=== PATIENT | female | born 1930 | race Caucasian/White ===

== ENCOUNTER 2016-08-29 01:27 | Emergency (ER) | payer MEDICARE ==
[2016-08-29] MEDS ORDERED: ACETAMINOPHEN TAB 325 MG TAB PO STA (02:12)
[2016-08-29 02:41] LABS: Basophils % (A) 0 %; CH 31.7; CHCM 34.3; Eosinophils % (A) 0 %; HCT 37.1 % (34.0-46.0); HDW 2.09; HGB 12.5 gm/dL (11.4-16.0); Luc # (Auto) 0.15; Luc % (Auto) 1; Lymphocytes # (A) 0.5 k/uL (1.0-4.8); Lymphocytes % (A) 5 %; MCH 31.3 pg (25.0-35.0); MCHC 33.7 g/dL (31.0-37.0); MCV 92.7 fL (80.0-100.0); Mean Platelet Volume 9.1; Monocytes # (A) 0.5 k/uL (0-1.0); Monocytes % (A) 5 %; Neutrophils # (A) 9.8 k/uL (1.3-7.7); Neutrophils % (A) 88 %; RBC 4.01 m/uL (3.80-5.40); RDW 13.3 % (11.5-15.5); WBC 11.1 k/uL (3.8-10.6); WBC (Perox) 11.01
[2016-08-29 02:50] LABS: ALT 34 U/L (9-52); AST 29 U/L (14-36); Alkaline Phosphatase 109 U/L (38-126); Anion Gap 11 mmol/L; Blood Urea Nitrogen 32 mg/dL (7-17); Calcium 9.8 mg/dL (8.4-10.2); Carbon Dioxide 28 mmol/L (22-30); Chloride 98 mmol/L (98-107); Glucose 111 mg/dL (74-99); Non-African American GFR(MDRD) 53 (>60 ml/min/1.73 sqM); Potassium 3.7 mmol/L (3.5-5.1); Sodium 137 mmol/L (137-145); Total Bilirubin 0.4 mg/dL (0.2-1.3); Total Protein 6.6 g/dL (6.3-8.2)
--- NOTE | 2016-08-29 03:16 | CT ---
EXAM: CT Head Without Intravenous Contrast CLINICAL HISTORY: Reason: fall TECHNIQUE: Axial computed tomography images of the head/brain without intravenous contrast. CTDI is 57.40 mGy and DLP is 943.80 mGy-cm. This CT exam was performed using one or more of the following dose reduction techniques: automated exposure control, adjustment of the mA and/or kV according to patient size, and/or use of iterative reconstruction technique. COMPARISON: CT head dated 01/16/2016 FINDINGS: Brain: No evidence of acute infarct, hemorrhage, mass or edema. Chronic small vessel skin disease and senescent changes. Ventricles: Unremarkable. No ventriculomegaly. Bones/joints: Unremarkable. No acute fracture. Soft tissues: Small right frontal scalp soft tissue hematoma. Sinuses: Mild mucosal thickening of the paranasal sinuses. Mastoid air cells: Unremarkable as visualized. No mastoid effusion. IMPRESSION: No acute intracranial abnormality. Small right frontal scalp soft tissue hematoma. EXAM: CT Cervical Spine Without Intravenous Contrast CLINICAL HISTORY: Reason: fall TECHNIQUE: Axial computed tomography images of the cervical spine without intravenous contrast. CTDI is 13.50 mGy and DLP is 249.40 mGy-cm. This CT exam was performed using one or more of the following dose reduction techniques: automated exposure control, adjustment of the mA and/or kV according to patient size, and/or use of iterative reconstruction technique. COMPARISON: No relevant prior studies available. FINDINGS: Vertebrae: No acute fracture or traumatic malalignment. Discs/spinal canal/neural foramina: Degenerative changes of the cervical spine. No spinal canal stenosis. Soft tissues: Unremarkable. Thyroid: 18 mm hypodensity within the left thyroid gland. Recommend nonemergent sonogram if clinically indicated. Lung apices: Biapical pleural-parenchymal scarring. IMPRESSION: 1. No acute fracture or traumatic malalignment. 2. 18 mm hypodensity within the left thyroid gland. Recommend nonemergent sonogram if clinically indicated.
--- NOTE | 2016-08-29 03:24 | XR ---
EXAM: XR Chest, 1 View CLINICAL HISTORY: Fever TECHNIQUE: Frontal view of the chest. COMPARISON: No relevant prior studies available. FINDINGS: Lungs: Unremarkable. No consolidation. Pleural space: Unremarkable. No pneumothorax. Heart: Unremarkable. No cardiomegaly. Mediastinum: Unremarkable. Bones/joints: Degenerative changes. IMPRESSION: Normal chest x-ray.
--- NOTE | 2016-08-29 03:25 | XR ---
EXAM: XR Right Elbow Complete, 3 or More Views CLINICAL HISTORY: fall TECHNIQUE: Frontal, lateral and oblique views of the right elbow. COMPARISON: No relevant prior studies available. FINDINGS: Bones/joints: Unremarkable. No acute fracture. No dislocation. Soft tissues: Soft tissue swelling about the proximal forearm. IMPRESSION: Soft tissue swelling about the proximal forearm. No fracture.
--- NOTE | 2016-08-29 03:26 | XR ---
EXAM: XR Right Ankle Complete, 3 or More Views CLINICAL HISTORY: Reason: fall TECHNIQUE: Frontal, lateral and oblique views of the right ankle. COMPARISON: No relevant prior studies available. FINDINGS: Bones/joints: Unremarkable. No acute fracture. No dislocation. Mild osteopenia. Soft tissues: Unremarkable. IMPRESSION: Normal right ankle x-rays.
[2016-08-29 03:43] LABS: Appearance,Urine Clear (Clear); Bacteria,Urine Rare /hpf; Bilirubin,Urine Negative (Negative); Glucose,Urine (UA) Negative (Negative); Ketones,Urine Negative (Negative); Leukocyte Esterase,Urine Negative (Negative); Nitrite,Urine Negative (Negative); PH, Urine 6.5 (5.0-8.0); Particle Count 712; Protein,Urine Negative (Negative); RBC,Urine <1 /hpf (0-5); Squamous Epithelial Cell,Urine 1 /hpf (0-4); UA Billing (MACRO vs. MICRO) MICRO; Urobilinogen,Urine <2.0 mg/dL (<2.0); WBC,Urine <1 /hpf (0-5)
--- NOTE | 2016-08-29 04:11 | ED ---
Fall HPI - General Chief Complaint: Fall Stated Complaint: Fall Time Seen by Provider: 08/29/16 01:39 Source: patient, family Mode of arrival: wheelchair Limitations: altered mental status (Dementia) - History of Present Illness Initial Comments: This patient is 86-year-old woman brought to be evaluated after she had a fall at home. The patient has moderate underlying dementia and is not able to contribute much history. She is denying pains. The patient's daughter provides most of the details about the fall. Family was concerned about the contusion to the right side of the head and the elbow as well as patient's right ankle. MD Complaint: fall Onset/Timin -: hour(s) Fall From: standing When Fall Occurred: [address] Fall Occurred: home Loss of Consciousness: none Prolonged Down Time?: no Location: head Location - Extremities: Right: Elbow, Ankle Severity: mild Context: tripped/slipped - Related Data Home Medications Medication Instructions Recorded Confirmed Losartan/Hydrochlorothiazide 1 tab PO DAILY 08/22/14 01/16/16 [Losartan-Hctz 100-25 mg Tab] Aspirin EC [Ecotrin Low Dose] 81 mg PO MOTH 01/16/16 01/16/16 Calcium Carbonate/Vitamin D3 1 tab PO DAILY 01/16/16 01/16/16 [Calcium 500-Vit D3 600 Tablet] Previous Rx's Medication Instructions Recorded Acetaminophen-Codeine 300-30mg 1 tab PO Q6H PRN #40 tablet 01/17/16 [Tylenol #3] amLODIPine [Norvasc] 5 mg PO HS #0 01/17/16 Allergies Allergy/AdvReac Type Severity Reaction Status Date / Time No Known Allergies Allergy Verified 01/16/16 16:48 Review of Systems ROS Statement: Those systems with pertinent positive or pertinent negative responses have been documented in the HPI. ROS Other: All systems not noted in ROS Statement are negative. Limitations: ROS unobtainable due to patients medical condition Past Medical History Past Medical History: Hypertension Additional Past Medical History / Comment(s): arthritis History of Any Multi-Drug Resistant Organisms: None Reported Additional Past Surgical History / Comment(s): right hip surgery Past Anesthesia/Blood Transfusion Reactions: No Reported Reaction Past Psychological History: No Psychological Hx Reported Smoking Status: Never smoker Past Alcohol Use History: None Reported Past Drug Use History: None Reported - Past Family History Mother History Unknown: Yes Family Medical History: Myocardial Infarction ([place]) Additional Family Medical History / Comment(s): passed from [place] in mid 50's General Exam Limitations: no limitations General appearance: alert, in no apparent distress Head exam: Present: normocephalic, other (Patient has contusion to the right parietal and right brow areas). Absent: atraumatic Eye exam: Present: normal appearance, PERRL, EOMI. Absent: scleral icterus, conjunctival injection ENT exam: Present: normal oropharynx, TM's normal bilaterally, normal external ear exam Neck exam: Present: normal inspection, full ROM. Absent: tenderness Respiratory exam: Present: normal lung sounds bilaterally. Absent: respiratory distress, wheezes, rales, rhonchi, chest wall tenderness Cardiovascular Exam: Present: regular rate, normal rhythm, normal heart sounds. Absent: systolic murmur, diastolic murmur, rubs, gallop GI/Abdominal exam: Present: soft. Absent: distended, tenderness, guarding, rebound, rigid Extremities exam: Present: full ROM, normal capillary refill, other (There is a hematoma to the right elbow, the lateral aspect. No bony tenderness or deformity). Absent: tenderness, pedal edema, calf tenderness Back exam: Present: normal inspection. Absent: CVA tenderness (R), CVA tenderness (L) Neurological exam: Present: alert, CN II-XII intact. Absent: oriented X3 ( Patient is alert and oriented to person and place, does not know the date.), motor sensory deficit Skin exam: Present: warm, dry, intact, normal color. Absent: rash Course Vital Signs 08/29/16 08/29/16 08/29/16 01:30 01:53 03:48 Temperature 98.5 F 99.5 F 99.3 F Pulse Rate 98 102 H Pulse Rate [ 93 [employer] ] Respiratory 20 16 14 Rate Blood Pressure 188/77 182/74 Blood Pressure 190/86 [Left Arm] O2 Sat by Pulse 93 L 99 97 Oximetry 08/29/16 04:46 Temperature 99.0 F Pulse Rate 90 Pulse Rate [ [employer] ] Respiratory 16 Rate Blood Pressure 159/75 Blood Pressure [Left Arm] O2 Sat by Pulse 98 Oximetry Medical Decision Making - Lab Data Result diagrams: 08/29/16 02:30 08/29/16 02:30 Lab Results 0608/29/16 08/29/16 Range/Units 02:30 02:30 02:30 WBC 11.1 H (3.8-10.6) k/uL RBC 4.01 (3.80-5.40) m/uL Hgb 12.5 (11.4-16.0) gm/dL Hct 37.1 (34.0-46.0) % MCV 92.7 (80.0-100.0) fL MCH 31.3 (25.0-35.0) pg MCHC 33.7 (31.0-37.0) g/dL RDW 13.3 (11.5-15.5) % Plt Count 279 (150-450) k/uL Neutrophils % 88 % Lymphocytes % 5 % Monocytes % 5 % Eosinophils % 0 % Basophils % 0 % Neutrophils # 9.8 H (1.3-7.7) k/uL Lymphocytes # 0.5 L (1.0-4.8) k/uL Monocytes # 0.5 (0-1.0) k/uL Eosinophils # 0.0 (0-0.7) k/uL Basophils # 0.0 (0-0.2) k/uL APTT (22.0-30.0) sec Sodium 137 (137-145) mmol/L Potassium 3.7 (3.5-5.1) mmol/L Chloride 98 (98-107) mmol/L Carbon Dioxide 28 (22-30) mmol/L Anion Gap 11 mmol/L BUN 32 H (7-17) mg/dL Creatinine 1.00 (0.52-1.04) mg/dL Est GFR (MDRD) Af Amer >60 (>60 ml/min/1.73 sqM) Est GFR (MDRD) Non-Af 53 (>60 ml/min/1.73 sqM) Glucose 111 H (74-99) mg/dL Plasma Lactic Acid Rahul 1.1 (0.7-2.0) mmol/L Calcium 9.8 (8.4-10.2) mg/dL Total Bilirubin 0.4 (0.2-1.3) mg/dL AST 29 (14-36) U/L ALT 34 (9-52) U/L Alkaline Phosphatase 109 (38-126) U/L Troponin I (0.000-0.034) ng/mL Total Protein 6.6 (6.3-8.2) g/dL Albumin 4.1 (3.5-5.0) g/dL Urine Color Urine Appearance (Clear) Urine pH (5.0-8.0) Ur Specific [place] (1.001-1.035) Urine Protein (Negative) Urine Glucose (UA) (Negative) Urine Ketones (Negative) Urine Blood (Negative) Urine Nitrite (Negative) Urine Bilirubin (Negative) Urine Urobilinogen (<2.0) mg/dL Ur Leukocyte Esterase (Negative) Urine RBC (0-5) /hpf Urine WBC (0-5) /hpf Ur Squamous Epith Cells (0-4) /hpf Urine Bacteria (None) /hpf 08/29/16 08/29/16 08/29/16 Range/Units 02:30 02:30 03:15 WBC (3.8-10.6) k/uL RBC (3.80-5.40) m/uL Hgb (11.4-16.0) gm/dL Hct (34.0-46.0) % MCV (80.0-100.0) fL MCH (25.0-35.0) pg MCHC (31.0-37.0) g/dL RDW (11.5-15.5) % Plt Count (150-450) k/uL Neutrophils % % Lymphocytes % % Monocytes % % Eosinophils % % Basophils % % Neutrophils # (1.3-7.7) k/uL Lymphocytes # (1.0-4.8) k/uL Monocytes # (0-1.0) k/uL Eosinophils # (0-0.7) k/uL Basophils # (0-0.2) k/uL APTT 22.2 (22.0-30.0) sec Sodium (137-145) mmol/L Potassium (3.5-5.1) mmol/L Chloride (98-107) mmol/L Carbon Dioxide (22-30) mmol/L Anion Gap mmol/L BUN (7-17) mg/dL Creatinine (0.52-1.04) mg/dL Est GFR (MDRD) Af Amer (>60 ml/min/1.73 sqM) Est GFR (MDRD) Non-Af (>60 ml/min/1.73 sqM) Glucose (74-99) mg/dL Plasma Lactic Acid Rahul (0.7-2.0) mmol/L Calcium (8.4-10.2) mg/dL Total Bilirubin (0.2-1.3) mg/dL AST (14-36) U/L ALT (9-52) U/L Alkaline Phosphatase (38-126) U/L Troponin I <0.012 (0.000-0.034) ng/mL Total Protein (6.3-8.2) g/dL Albumin (3.5-5.0) g/dL Urine Color Light Yellow Urine Appearance Clear (Clear) Urine pH 6.5 (5.0-8.0) Ur Specific [place] 1.010 (1.001-1.035) Urine Protein Negative (Negative) Urine Glucose (UA) Negative (Negative) Urine Ketones Negative (Negative) Urine Blood Trace H (Negative) Urine Nitrite Negative (Negative) Urine Bilirubin Negative (Negative) Urine Urobilinogen <2.0 (<2.0) mg/dL Ur Leukocyte Esterase Negative (Negative) Urine RBC <1 (0-5) /hpf Urine WBC <1 (0-5) /hpf Ur Squamous Epith Cells 1 (0-4) /hpf Urine Bacteria Rare H (None) /hpf - EKG Data -: EKG Interpreted by Id EKG shows normal: sinus rhythm, axis (Normal), intervals (QRS duration is prolonged at 122 ms. AK and QT intervals normal), QRS complexes (Right bundle branch block), ST-T waves (Normal) Rate: normal (Rate 90 bpm) Disposition Clinical Impression: Fall, Head injury, Hematoma Disposition: HOME SELF-CARE Condition: Fair Instructions: Fall Prevention for Older Adults (ED), Head Injury (ED) Referrals: Levi Escalona MD [Primary Care Provider] - 1-2 days
[2016-08-29 04:47] VITALS: BP 159/75; PULSE 90; RESP 16; TEMP 99
== END 2016-08-29 04:47 | disposition home or self-care (01) ==
LOC: EC 01:27
DX: S00.11XA Contusion of right eyelid and periocular area, initial encounter (principal); S00.03XA Contusion of scalp, initial encounter; S50.01XA Contusion of right elbow, initial encounter; S99.911A Unspecified injury of right ankle, initial encounter; I10 Essential (primary) hypertension; M19.90 Unspecified osteoarthritis, unspecified site; Z79.82 Long term (current) use of aspirin; Z79.899 Other long term (current) drug therapy; W01.0XXA Fall on same level from slipping, tripping and stumbling without subsequent striking against object, initial encounter; Y92.009 Unspecified place in unspecified non-institutional (private) residence as the place of occurrence of the external cause
CPT/HCPCS: 99284; 36415; 93005; 80053; 83605; 84484; 85025; 85730; 81001; 87040; 87086; 71010; 73080; 73610; 72125; 70450; J0696

== ENCOUNTER 2016-09-01 12:48 | Emergency (ER) | payer MEDICARE ==
[2016-09-01 13:16] LABS: Glucose,Whole Blood 170 mg/dL (75-99)
--- NOTE | 2016-09-01 14:08 | ED ---
Weakness HPI - General Chief complaint: Weakness Stated complaint: fall/vomiting/weakness Source: patient, family Mode of arrival: wheelchair Limitations: no limitations - History of Present Illness Initial comments: Patient is a 86-year-old female who presents for evaluation for nausea and vomiting, right hip pain, possible confusion since fall this past Sunday. Past medical history as below. Patient fell at home 2 times last Sunday. She came to our facility for evaluation and had negative CT head and neck and was subsequently discharged home. On follow-up with her primary care physician. Was found that she had a right wrist fracture which is currently in a splint. Patient's family member brought her in for evaluation today because she had a couple episodes of emesis. She also appears to have pain to the right hip. Reevaluation by the primary care physician revealed swelling to the lower extremities bilaterally and a chest x-ray which revealed fluid. She started on Lasix and potassium. The family member also states that she seems to be a little bit more altered than usual. She seems to be more weak as well. She's been having an intermittent nonproductive cough in addition. Because of her constellation of symptoms and the recurrent falls, family member decided to bring her in for evaluation. No fevers at home. No obvious headaches, URI symptoms, chest pain, difficulty breathing, diarrhea, changes in urination. - Related Data Home Medications Medication Instructions Recorded Confirmed Losartan/Hydrochlorothiazide 1 tab PO DAILY 08/22/14 09/01/16 [Losartan-Hctz 100-25 mg Tab] Aspirin EC [Ecotrin Low Dose] 81 mg PO MOTH 01/16/16 09/01/16 Calcium Carbonate/Vitamin D3 1 tab PO DAILY 01/16/16 09/01/16 [Calcium 500-Vit D3 600 Tablet] hydrALAZINE HCL [Apresoline] 10 mg PO BID 09/01/16 09/01/16 Previous Rx's Medication Instructions Recorded amLODIPine [Norvasc] 5 mg PO HS #0 01/17/16 Allergies Allergy/AdvReac Type Severity Reaction Status Date / Time No Known Allergies Allergy Verified 09/01/16 13:48 Review of Systems ROS Statement: Those systems with pertinent positive or pertinent negative responses have been documented in the HPI. ROS Other: All systems not noted in ROS Statement are negative. Past Medical History Past Medical History: Hypertension Additional Past Medical History / Comment(s): arthritis osteoporosis History of Any Multi-Drug Resistant Organisms: None Reported Additional Past Surgical History / Comment(s): right hip surgery Past Anesthesia/Blood Transfusion Reactions: No Reported Reaction Past Psychological History: No Psychological Hx Reported Smoking Status: Never smoker Past Alcohol Use History: None Reported Past Drug Use History: None Reported - Past Family History Mother History Unknown: Yes Family Medical History: Myocardial Infarction ([place]) Additional Family Medical History / Comment(s): passed from [place] in mid 50's General Exam Limitations: no limitations General appearance: alert, in no apparent distress, other (No acute distress. Blood pressure noted to be significantly elevated.) Head exam: Present: normocephalic, normal inspection, other (Bruising around the right eye. No crepitus.) Eye exam: Present: normal appearance, PERRL, EOMI. Absent: scleral icterus, conjunctival injection, periorbital swelling ENT exam: Present: normal exam, mucous membranes moist, other (No hemotympanum bilaterally. Extraocular muscles intact.) Neck exam: Present: normal inspection, other (No midline tenderness). Absent: tenderness, meningismus, lymphadenopathy Respiratory exam: Present: normal lung sounds bilaterally, other (Clear bilaterally. No wheezes rales or rhonchi.). Absent: respiratory distress, wheezes, rales, rhonchi, stridor Cardiovascular Exam: Present: regular rate, normal rhythm, normal heart sounds. Absent: systolic murmur, diastolic murmur, rubs, gallop, clicks GI/Abdominal exam: Present: soft, normal bowel sounds, other (Abdomen is soft and nontender. No peritoneal signs.). Absent: distended, tenderness, guarding , rebound, rigid Extremities exam: Present: normal inspection, full ROM, normal capillary refill , other (Right wrist is in a brace. Pain with palpation of the right hip.). Absent: tenderness, pedal edema, joint swelling, calf tenderness Back exam: Present: normal inspection Neurological exam: Present: alert, CN II-XII intact, other (Alert. Answers questions appropriately. And O 2 which is her baseline. No focal deficits. Sensation intact in all 4 charities.) Psychiatric exam: Present: normal affect, normal mood Skin exam: Present: warm, dry, intact, normal color. Absent: rash Course Vital Signs 09/01/16 09/01/16 09/01/16 12:57 13:43 15:53 Temperature 97.2 F L Pulse Rate 77 72 100 Respiratory 18 16 18 Rate Blood Pressure 191/81 206/87 188/82 O2 Sat by Pulse 97 95 97 Oximetry 09/01/16 18:02 Temperature 97 F L Pulse Rate 100 Respiratory 18 Rate Blood Pressure 200/91 O2 Sat by Pulse 97 Oximetry Medical Decision Making - Medical Decision Making Patient is afebrile female percents for evaluation for nausea vomiting, weakness , questionable change in mentation. We'll repeat CT head in order CT face without contrast. Plain films of the chest and right hip. Basic labs including liver profile, lipase, troponin, BNP. Blood pressure noted to be 196 200 systolic. Known history of hypertension. Took medications this morning. Will reevaluate. 1530: Reviewed CT imaging. No acute process. Reviewed plain films of the chest and right hip. No fracture dislocation. Otherwise no acute process. Awaiting for blood work. 1640: Updated family. Awaiting IV team as pt was a difficult IV. 1750: Reviewed laboratory studies. Largely unremarkable. Had a lengthy discussion with the patient's family member at bedside. As of right now, there is no objective criteria for admission. Do not have a reason for her weakness at this time. Per chart review in further discussion with the patient's family member, the patient has early dementia and has been increasingly more forgetful and confused as of late. Patient's blood pressure noted to be quite elevated in the 190s to 200s systolic. There is no evidence of end organ damage at this time. I gave the patient's family member the option of treating her blood pressure here versus discharge home to take her evening hypertension medications. Family member elected to be discharged home and take her home medications. Encourage close follow-up with her primary care physician. We'll call on Sunday morning. Discussed signs and symptoms on when to return to the emergency department for further evaluation. Comfortable discharge home and will follow-up with primary care physician early next week. - Lab Data Result diagrams: 09/01/16 16:42 09/01/16 16:42 Lab Results 09/01/16 09/01/16 09/01/16 Range/Units 13:12 14:02 16:42 WBC (3.8-10.6) k/uL RBC (3.80-5.40) m/uL Hgb (11.4-16.0) gm/dL Hct (34.0-46.0) % MCV (80.0-100.0) fL MCH (25.0-35.0) pg MCHC (31.0-37.0) g/dL RDW (11.5-15.5) % Plt Count (150-450) k/uL Neutrophils % % Lymphocytes % % Monocytes % % Eosinophils % % Basophils % % Neutrophils # (1.3-7.7) k/uL Lymphocytes # (1.0-4.8) k/uL Monocytes # (0-1.0) k/uL Eosinophils # (0-0.7) k/uL Basophils # (0-0.2) k/uL Sodium 131 L (137-145) mmol/L Potassium 3.8 (3.5-5.1) mmol/L Chloride 90 L (98-107) mmol/L Carbon Dioxide 31 H (22-30) mmol/L Anion Gap 10 mmol/L BUN 18 H (7-17) mg/dL Creatinine 0.80 (0.52-1.04) mg/dL Est GFR (MDRD) Af Amer >60 (>60 ml/min/1.73 sqM) Est GFR (MDRD) Non-Af >60 (>60 ml/min/1.73 sqM) Glucose 116 H (74-99) mg/dL POC Glucose (mg/dL) 170 H (75-99) mg/dL POC Glu Patient Intake Coordinator ID Blanca Riojas Calcium 10.1 (8.4-10.2) mg/dL Magnesium 1.7 (1.6-2.3) mg/dL Total Bilirubin 0.5 (0.2-1.3) mg/dL AST 31 (14-36) U/L ALT 29 (9-52) U/L Alkaline Phosphatase 95 (38-126) U/L Troponin I (0.000-0.034) ng/mL NT-Pro-B Natriuret Pep pg/mL Total Protein 6.2 L (6.3-8.2) g/dL Albumin 3.6 (3.5-5.0) g/dL Lipase 94 (23-300) U/L Urine Color Light Yellow Urine Appearance Clear (Clear) Urine pH 7.0 (5.0-8.0) Ur Specific [place] 1.006 (1.001-1.035) Urine Protein Negative (Negative) Urine Glucose (UA) Negative (Negative) Urine Ketones Negative (Negative) Urine Blood Negative (Negative) Urine Nitrite Negative (Negative) Urine Bilirubin Negative (Negative) Urine Urobilinogen <2.0 (<2.0) mg/dL Ur Leukocyte Esterase Negative (Negative) 09/01/16 09/01/16 09/01/16 Range/Units 16:42 16:42 16:42 WBC 8.1 (3.8-10.6) k/uL RBC 4.07 (3.80-5.40) m/uL Hgb 13.2 (11.4-16.0) gm/dL Hct 36.2 (34.0-46.0) % MCV 88.8 (80.0-100.0) fL MCH 32.4 (25.0-35.0) pg MCHC 36.4 (31.0-37.0) g/dL RDW 12.7 (11.5-15.5) % Plt Count 300 (150-450) k/uL Neutrophils % 88 % Lymphocytes % 6 % Monocytes % 4 % Eosinophils % 1 % Basophils % 0 % Neutrophils # 7.1 (1.3-7.7) k/uL Lymphocytes # 0.5 L (1.0-4.8) k/uL Monocytes # 0.3 (0-1.0) k/uL Eosinophils # 0.1 (0-0.7) k/uL Basophils # 0.0 (0-0.2) k/uL Sodium (137-145) mmol/L Potassium (3.5-5.1) mmol/L Chloride (98-107) mmol/L Carbon Dioxide (22-30) mmol/L Anion Gap mmol/L BUN (7-17) mg/dL Creatinine (0.52-1.04) mg/dL Est GFR (MDRD) Af Amer (>60 ml/min/1.73 sqM) Est GFR (MDRD) Non-Af (>60 ml/min/1.73 sqM) Glucose (74-99) mg/dL POC Glucose (mg/dL) (75-99) mg/dL POC Glu Patient Intake Coordinator ID Calcium (8.4-10.2) mg/dL Magnesium (1.6-2.3) mg/dL Total Bilirubin (0.2-1.3) mg/dL AST (14-36) U/L ALT (9-52) U/L Alkaline Phosphatase (38-126) U/L Troponin I <0.012 (0.000-0.034) ng/mL NT-Pro-B Natriuret Pep 209 pg/mL Total Protein (6.3-8.2) g/dL Albumin (3.5-5.0) g/dL Lipase (23-300) U/L Urine Color Urine Appearance (Clear) Urine pH (5.0-8.0) Ur Specific [place] (1.001-1.035) Urine Protein (Negative) Urine Glucose (UA) (Negative) Urine Ketones (Negative) Urine Blood (Negative) Urine Nitrite (Negative) Urine Bilirubin (Negative) Urine Urobilinogen (<2.0) mg/dL Ur Leukocyte Esterase (Negative) Disposition Clinical Impression: Fall, Contusion, Hypertension, Weakness Disposition: HOME SELF-CARE Condition: Fair Instructions: Head Injury (ED), Weakness (ED) Referrals: Levi Escalona MD [Primary Care Provider] - 1-2 days
[2016-09-01 14:25] LABS: Appearance,Urine Clear (Clear); Bilirubin,Urine Negative (Negative); Glucose,Urine (UA) Negative (Negative); Ketones,Urine Negative (Negative); Leukocyte Esterase,Urine Negative (Negative); Nitrite,Urine Negative (Negative); Protein,Urine Negative (Negative); Specific Gravity,Urine 1.006 (1.001-1.035); UA Billing (MACRO vs. MICRO) CHEM; Urobilinogen,Urine <2.0 mg/dL (<2.0)
--- NOTE | 2016-09-01 14:57 | CT ---
EXAMINATION TYPE: CT brain wo con, CT facial bones wo con DATE OF EXAM: 09/01/2016 HISTORY: Fall, bruising to eye bruising (accession [id number]), Fall, Rt sided eye bruising (accession [id number]) headache. CT DLP: 1441 (brain and facial) (accession [id number]), 1441 (accession [id number]) mGycm. Automated Exp osure Control for Dose Reduction was Utilized. TECHNIQUE: CT scan of the head and facial bones are performed without contrast. COMPARISON: CT brain 3 days ago. FINDINGS: There is no acute intracranial hemorrhage or midline shift identified. There is diffuse v entricular and sulcal prominence consistent with diffuse age-related cerebral atrophy. There is low- attenuation in the periventricular white matter consistent with chronic small vessel ischemic change. The calvarium is intact. Visualized mandible is intact. Temporomandibular joints are maintained bilaterally. The zygomatic arc hes are intact bilaterally. Nasal bridge is intact. There is small hematoma over right zygoma near ax ial image 36. Orbital floors and dias are intact. The pterygoid plates are intact. There is air-fluid level in left maxillary sinus. Mild to moderate mucosal thickening inferiorly and anteriorly is seen. There is patchy opacity and small caliber left sphenoid sinus. There is near comp lete opacification of left-sided ethmoid sinuses. IMPRESSION: 1. No acute intracranial hemorrhage or midline shift. There is moderate diffuse age-related cerebral atrophy and severe chronic small vessel ischemic change redemonstrated without significant interval change. 2. Tiny right hematoma right zygoma level. No acute facial bone fracture or dislocation is seen. Left -sided paranasal sinus disease is noted.
--- NOTE | 2016-09-01 15:00 | XR ---
EXAMINATION TYPE: XR chest 2V DATE OF EXAM: 09/01/2016 COMPARISON: Chest x-ray August 29, 2016. HISTORY: Fall injury with cough. TECHNIQUE: Frontal and lateral views of the chest are obtained. FINDINGS: There are small bilateral pleural effusions. Underlying emphysematous change is not exclud ed. There is no suspicious new focal airspace opacity or pneumothorax seen bilaterally. There is stab le mild cardiomegaly with atherosclerotic and ectatic thoracic aorta. Osseous structures are deminera lized. Old fracture deformity left proximal humerus is suspected. There are multiple chronic compress ion type fractures in the thoracic spine noted. IMPRESSION: Chronic changes and cardiomegaly with small bilateral pleural effusions, no significant change from prior.
--- NOTE | 2016-09-01 15:02 | XR ---
EXAMINATION TYPE: XR Hip Complete RT DATE OF EXAM: 09/01/2016 CLINICAL HISTORY: Fall injury with right hip pain. TECHNIQUE: AP and frogleg views of the right hip are obtained. COMPARISON: Pelvic x-ray August 22, 2014 FINDINGS: Osseous structures are demineralized which is noted to lower radiographic sensitivity. The re is no acute fracture/dislocation evident in the right hip. Mild to moderate axial joint space loss right hip is redemonstrated. Vascular calcification right groin region is noted. IMPRESSION: There is no acute fracture or dislocation in the right hip.
[2016-09-01 15:53] VITALS: PULSE 100; RESP 18
[2016-09-01 17:04] LABS: Basophils % (A) 0 %; CH 31.3; CHCM 35.3; Eosinophils # (A) 0.1 k/uL (0-0.7); Eosinophils % (A) 1 %; HCT 36.2 % (34.0-46.0); HDW 2.35; HGB 13.2 gm/dL (11.4-16.0); Luc # (Auto) 0.13; Luc % (Auto) 2; Lymphocytes # (A) 0.5 k/uL (1.0-4.8); Lymphocytes % (A) 6 %; MCH 32.4 pg (25.0-35.0); MCHC 36.4 g/dL (31.0-37.0); MCV 88.8 fL (80.0-100.0); Monocytes # (A) 0.3 k/uL (0-1.0); Monocytes % (A) 4 %; Neutrophils # (A) 7.1 k/uL (1.3-7.7); Neutrophils % (A) 88 %; RBC 4.07 m/uL (3.80-5.40); RDW 12.7 % (11.5-15.5); WBC 8.1 k/uL (3.8-10.6); WBC (Perox) 7.89
[2016-09-01 17:25] LABS: ALT 29 U/L (9-52); AST 31 U/L (14-36); Alkaline Phosphatase 95 U/L (38-126); Anion Gap 10 mmol/L; Blood Urea Nitrogen 18 mg/dL (7-17); Calcium 10.1 mg/dL (8.4-10.2); Carbon Dioxide 31 mmol/L (22-30); Chloride 90 mmol/L (98-107); Glucose 116 mg/dL (74-99); Magnesium 1.7 mg/dL (1.6-2.3); Non-African American GFR(MDRD) >60 (>60 ml/min/1.73 sqM); Potassium 3.8 mmol/L (3.5-5.1); Sodium 131 mmol/L (137-145); Total Bilirubin 0.5 mg/dL (0.2-1.3); Total Protein 6.2 g/dL (6.3-8.2)
[2016-09-01 18:03] VITALS: BP 200/91; TEMP 97
== END 2016-09-01 18:14 | disposition home or self-care (01) ==
LOC: EC 12:48
DX: S70.01XA Contusion of right hip, initial encounter (principal); R11.2 Nausea with vomiting, unspecified; R41.0 Disorientation, unspecified; F03.90 Unspecified dementia, unspecified severity, without behavioral disturbance, psychotic disturbance, mood disturbance, and anxiety; I10 Essential (primary) hypertension; M19.90 Unspecified osteoarthritis, unspecified site; M81.0 Age-related osteoporosis without current pathological fracture; Z79.82 Long term (current) use of aspirin; Z79.899 Other long term (current) drug therapy; Z87.81 Personal history of (healed) traumatic fracture; W18.30XA Fall on same level, unspecified, initial encounter; Y92.009 Unspecified place in unspecified non-institutional (private) residence as the place of occurrence of the external cause
CPT/HCPCS: 36415; 70450; 70486; 71020; 73502; 80053; 81003; 83690; 83735; 83880; 84484; 85025; 99285

== ENCOUNTER 2016-09-10 15:43 | Inpatient (IN) | payer MEDICARE ==
[2016-09-10] MEDS ORDERED: ONDANSETRON 4 MG/2 ML VIAL IVP STA (16:21)
[2016-09-10] MEDS ORDERED: MORPHINE SULFATE 4 MG/ML SYRINGE IVP STA (16:34)
[2016-09-10 17:38] LABS: Appearance,Urine Clear (Clear); Bilirubin,Urine Negative (Negative); Glucose,Urine (UA) Negative (Negative); Ketones,Urine Negative (Negative); Leukocyte Esterase,Urine Negative (Negative); Nitrite,Urine Negative (Negative); PH, Urine 7.5 (5.0-8.0); Protein,Urine Negative (Negative); Specific Gravity,Urine 1.011 (1.001-1.035); UA Billing (MACRO vs. MICRO) CHEM; Urobilinogen,Urine <2.0 mg/dL (<2.0)
--- NOTE | 2016-09-10 18:10 | XR ---
EXAMINATION TYPE: XR KUB DATE OF EXAM: 09/10/2016 COMPARISON: NONE HISTORY: Pain TECHNIQUE: Single supine KUB image of the abdomen is obtained FINDINGS: Small bowel demonstrates no evidence for dilatation or air fluid levels. Gas and fecal material is seen in non-distended colon. No convincing evidence for pneumoperitoneum. No unusual calcifications. The lung bases are clear. The osseous structures are intact. IMPRESSION: 1. Overall nonobstructive bowel gas pattern.
--- NOTE | 2016-09-10 18:10 | XR ---
EXAMINATION TYPE: XR chest 2V DATE OF EXAM: 09/10/2016 COMPARISON: 09/01/2016 HISTORY: Shortness of breath TECHNIQUE: Frontal and lateral views of the chest are obtained. FINDINGS: Scattered senescent parenchymal changes noted. Hyperinflation compatible with COPD. No evidence for infiltrate. No evidence for atelectasis. Small bilateral pleural effusions persist. Heart size is stable. Mediastinal structures are stable and grossly unremarkable. No evidence for hilar prominence. Degenerative changes dorsal spine. IMPRESSION: 1. No evidence for acute pulmonary disease.
[2016-09-10 18:41] LABS: Basophils % (A) 0 %; CH 31.6; CHCM 35.5; Eosinophils % (A) 0 %; HCT 35.2 % (34.0-46.0); HDW 2.39; Luc # (Auto) 0.17; Luc % (Auto) 2; Lymphocytes # (A) 0.4 k/uL (1.0-4.8); Lymphocytes % (A) 4 %; MCH 30.5 pg (25.0-35.0); MCHC 34.1 g/dL (31.0-37.0); MCV 89.4 fL (80.0-100.0); Mean Platelet Volume 8.4; Monocytes # (A) 0.4 k/uL (0-1.0); Monocytes % (A) 4 %; Neutrophils # (A) 9.2 k/uL (1.3-7.7); Neutrophils % (A) 90 %; RBC 3.94 m/uL (3.80-5.40); RDW 13.1 % (11.5-15.5); WBC 10.2 k/uL (3.8-10.6); WBC (Perox) 10.81
[2016-09-10 18:45] LABS: VBG PH 7.6 (7.31-7.41)
[2016-09-10 18:50] LABS: ALT 28 U/L (9-52); AST 27 U/L (14-36); Alkaline Phosphatase 132 U/L (38-126); Anion Gap 12 mmol/L; Blood Urea Nitrogen 25 mg/dL (7-17); Calcium 8.9 mg/dL (8.4-10.2); Carbon Dioxide 23 mmol/L (22-30); Chloride 87 mmol/L (98-107); Glucose 112 mg/dL (74-99); Non-African American GFR(MDRD) >60 (>60 ml/min/1.73 sqM); Potassium 3.5 mmol/L (3.5-5.1); Sodium 122 mmol/L (137-145); Total Protein 6.5 g/dL (6.3-8.2)
[2016-09-10] MEDS ORDERED: SODIUM CHLORIDE 0.9% 1,000 ML IV STA (18:55)
--- NOTE | 2016-09-10 19:14 | ED ---
General Adult HPI - General Chief complaint: Nausea/Vomiting/Diarrhea Stated complaint: vomiting/diarrhea Time Seen by Provider: 09/10/16 16:03 Source: patient, family, RN notes reviewed Mode of arrival: wheelchair Limitations: no limitations - History of Present Illness Initial comments: 86-year-old female with past medical history of hypertension and early dementia presents with a three-day history of nausea vomiting and several episodes of loose stool. Patient is accompanied by her daughter who states she had approximately 3 episodes of vomiting each day and had 30 minutes of dry heaving today. Denies fever states she has had some chills. No chest pain or shortness of breath. No abdominal pain. Patient was prescribed a Z-Job and Medrol Dosepak for chest congestion approximately one week ago. - Related Data Home Medications Medication Instructions Recorded Confirmed Losartan/Hydrochlorothiazide 1 tab PO DAILY 08/22/14 09/10/16 [Losartan-Hctz 100-25 mg Tab] Aspirin EC [Ecotrin Low Dose] 81 mg PO MOTH 01/16/16 09/10/16 Calcium Carbonate/Vitamin D3 1 tab PO DAILY 01/16/16 09/10/16 [Calcium 500-Vit D3 600 Tablet] hydrALAZINE HCL [Apresoline] 10 mg PO BID 09/01/16 09/10/16 Azithromycin [Zithromax Z-pack] See Taper PO DAILY 09/10/16 09/10/16 Promethazine/Dextromethorphan 7.5 ml PO Q8H PRN 09/10/16 09/10/16 [Promethazine-Dm Syrup] amLODIPine [Norvasc] 5 mg PO DAILY 09/10/16 09/10/16 methylPREDNISolone [Medrol Dose See Taper PO DAILY 09/10/16 09/10/16 Pack] Allergies Allergy/AdvReac Type Severity Reaction Status Date / Time No Known Allergies Allergy Verified 09/10/16 16:05 Review of Systems ROS Statement: Those systems with pertinent positive or pertinent negative responses have been documented in the HPI. ROS Other: All systems not noted in ROS Statement are negative. Respiratory: Denies: cough, dyspnea Cardiovascular: Denies: chest pain, palpitations Past Medical History Past Medical History: Hypertension Additional Past Medical History / Comment(s): arthritis osteoporosis History of Any Multi-Drug Resistant Organisms: None Reported Additional Past Surgical History / Comment(s): right hip surgery Past Anesthesia/Blood Transfusion Reactions: No Reported Reaction Past Psychological History: No Psychological Hx Reported Smoking Status: Never smoker Past Alcohol Use History: None Reported Past Drug Use History: None Reported - Past Family History Mother History Unknown: Yes Family Medical History: Myocardial Infarction ([place]) Additional Family Medical History / Comment(s): passed from [place] in mid 50's General Exam Limitations: no limitations General appearance: alert, in no apparent distress Head exam: Present: atraumatic, normocephalic Eye exam: Present: normal appearance, PERRL ENT exam: Present: normal exam, mucous membranes dry Neck exam: Present: full ROM. Absent: meningismus Respiratory exam: Present: normal lung sounds bilaterally, respiratory distress Cardiovascular Exam: Present: regular rate, normal rhythm Course Vital Signs 09/10/16 09/10/16 09/10/16 15:48 18:09 18:39 Temperature 98.5 F Pulse Rate 80 72 68 Respiratory 20 16 16 Rate Blood Pressure 181/79 150/71 154/72 O2 Sat by Pulse 98 98 96 Oximetry 09/10/16 19:08 Temperature 97.1 F L Pulse Rate 76 Respiratory 16 Rate Blood Pressure 179/81 O2 Sat by Pulse 96 Oximetry EKG Findings - EKG Comments: EKG Findings:: EKG shows normal sinus rhythm with ventricular 75, P reveals 140 , QRS duration 124, QTC is 480, there is a right bundle branch block. Medical Decision Making - Medical Decision Making A 6-year-old female presenting with 3 days history of nausea vomiting and diarrhea. Patient's abdomen is nontender nondistended. She is afebrile with stable vital signs. Laboratory studies reveal hypo-chloremia and a potassium of 3.5. Patient presents venous blood gas 7.6 which is consistent with significant vomiting and diarrhea. Patient will be admitted to internal medicine for fluid hydration and symptomatic relief. Abdominal x-ray is negative for obstruction or free air. - Lab Data Result diagrams: 09/10/16 18:30 09/10/16 18:30 Lab Results 09/10/16 09/10/16 09/10/16 Range/Units 17:30 18:30 18:30 WBC 10.2 (3.8-10.6) k/uL RBC 3.94 (3.80-5.40) m/uL Hgb 12.0 (11.4-16.0) gm/dL Hct 35.2 (34.0-46.0) % MCV 89.4 (80.0-100.0) fL MCH 30.5 (25.0-35.0) pg MCHC 34.1 (31.0-37.0) g/dL RDW 13.1 (11.5-15.5) % Plt Count 358 (150-450) k/uL Neutrophils % 90 % Lymphocytes % 4 % Monocytes % 4 % Eosinophils % 0 % Basophils % 0 % Neutrophils # 9.2 H (1.3-7.7) k/uL Lymphocytes # 0.4 L (1.0-4.8) k/uL Monocytes # 0.4 (0-1.0) k/uL Eosinophils # 0.0 (0-0.7) k/uL Basophils # 0.0 (0-0.2) k/uL VBG pH 7.60 H* (7.31-7.41) VBG pCO2 26 L (37-51) mmHg VBG HCO3 25 (24-28) mmol/L Sodium (137-145) mmol/L Potassium (3.5-5.1) mmol/L Chloride (98-107) mmol/L Carbon Dioxide (22-30) mmol/L Anion Gap mmol/L BUN (7-17) mg/dL Creatinine (0.52-1.04) mg/dL Est GFR (MDRD) Af Amer (>60 ml/min/1.73 sqM) Est GFR (MDRD) Non-Af (>60 ml/min/1.73 sqM) Glucose (74-99) mg/dL Plasma Lactic Acid Rahul (0.7-2.0) mmol/L Calcium (8.4-10.2) mg/dL Total Bilirubin (0.2-1.3) mg/dL AST (14-36) U/L ALT (9-52) U/L Alkaline Phosphatase (38-126) U/L Troponin I (0.000-0.034) ng/mL Total Protein (6.3-8.2) g/dL Albumin (3.5-5.0) g/dL Lipase (23-300) U/L Urine Color Yellow Urine Appearance Clear (Clear) Urine pH 7.5 (5.0-8.0) Ur Specific Dow 1.011 (1.001-1.035) Urine Protein Negative (Negative) Urine Glucose (UA) Negative (Negative) Urine Ketones Negative (Negative) Urine Blood Negative (Negative) Urine Nitrite Negative (Negative) Urine Bilirubin Negative (Negative) Urine Urobilinogen <2.0 (<2.0) mg/dL Ur Leukocyte Esterase Negative (Negative) 09/10/16 09/10/16 09/10/16 Range/Units 18:30 18:30 18:30 WBC (3.8-10.6) k/uL RBC (3.80-5.40) m/uL Hgb (11.4-16.0) gm/dL Hct (34.0-46.0) % MCV (80.0-100.0) fL MCH (25.0-35.0) pg MCHC (31.0-37.0) g/dL RDW (11.5-15.5) % Plt Count (150-450) k/uL Neutrophils % % Lymphocytes % % Monocytes % % Eosinophils % % Basophils % % Neutrophils # (1.3-7.7) k/uL Lymphocytes # (1.0-4.8) k/uL Monocytes # (0-1.0) k/uL Eosinophils # (0-0.7) k/uL Basophils # (0-0.2) k/uL VBG pH (7.31-7.41) VBG pCO2 (37-51) mmHg VBG HCO3 (24-28) mmol/L Sodium 122 L (137-145) mmol/L Potassium 3.5 (3.5-5.1) mmol/L Chloride 87 L (98-107) mmol/L Carbon Dioxide 23 (22-30) mmol/L Anion Gap 12 mmol/L BUN 25 H (7-17) mg/dL Creatinine 0.63 (0.52-1.04) mg/dL Est GFR (MDRD) Af Amer >60 (>60 ml/min/1.73 sqM) Est GFR (MDRD) Non-Af >60 (>60 ml/min/1.73 sqM) Glucose 112 H (74-99) mg/dL Plasma Lactic Acid Rahul 0.7 (0.7-2.0) mmol/L Calcium 8.9 (8.4-10.2) mg/dL Total Bilirubin 1.0 (0.2-1.3) mg/dL AST 27 (14-36) U/L ALT 28 (9-52) U/L Alkaline Phosphatase 132 H (38-126) U/L Troponin I <0.012 (0.000-0.034) ng/mL Total Protein 6.5 (6.3-8.2) g/dL Albumin 3.6 (3.5-5.0) g/dL Lipase 146 (23-300) U/L Urine Color Urine Appearance (Clear) Urine pH (5.0-8.0) Ur Specific Dow (1.001-1.035) Urine Protein (Negative) Urine Glucose (UA) (Negative) Urine Ketones (Negative) Urine Blood (Negative) Urine Nitrite (Negative) Urine Bilirubin (Negative) Urine Urobilinogen (<2.0) mg/dL Ur Leukocyte Esterase (Negative) Disposition Clinical Impression: Nausea & vomiting, Hypochloremia Disposition: ADMITTED IP TO THIS [facility] Referrals: Levi Escalona MD [Primary Care Provider] - 1-2 days Time of Disposition: 18:50 Decision to Admit Reason: Admit from EC Decision Date: 09/10/16 Decision Time: 18:50
[2016-09-10] MEDS ORDERED: ONDANSETRON 4 MG/2 ML VIAL IVP PRN (19:25)
[2016-09-10] MEDS ORDERED: MORPHINE SULFATE 4 MG/ML SYRINGE IV PRN (19:25)
[2016-09-10] MEDS ORDERED: NALOXONE 0.4 MG/ML 1 ML VIAL IV PRN (19:25)
[2016-09-10] MEDS: hydrALAZINE HCL 10 MG TAB PO SCH (22:02)
[2016-09-11 07:46] LABS: Basophils % (A) 0 %; CH 31.6; CHCM 35.2; Eosinophils # (A) 0.1 k/uL (0-0.7); Eosinophils % (A) 1 %; HCT 36.2 % (34.0-46.0); HDW 2.37; HGB 12.2 gm/dL (11.4-16.0); Luc # (Auto) 0.22; Luc % (Auto) 2; Lymphocytes # (A) 1.1 k/uL (1.0-4.8); Lymphocytes % (A) 11 %; MCH 30.4 pg (25.0-35.0); MCHC 33.8 g/dL (31.0-37.0); MCV 90.1 fL (80.0-100.0); Mean Platelet Volume 8.9; Monocytes # (A) 0.6 k/uL (0-1.0); Monocytes % (A) 6 %; Neutrophils # (A) 7.6 k/uL (1.3-7.7); Neutrophils % (A) 79 %; RBC 4.02 m/uL (3.80-5.40); RDW 12.9 % (11.5-15.5); WBC 9.6 k/uL (3.8-10.6); WBC (Perox) 10.13
[2016-09-11 07:57] LABS: Anion Gap 12 mmol/L; Blood Urea Nitrogen 22 mg/dL (7-17); Calcium 9.1 mg/dL (8.4-10.2); Carbon Dioxide 24 mmol/L (22-30); Chloride 89 mmol/L (98-107); Glucose 94 mg/dL (74-99); Non-African American GFR(MDRD) >60 (>60 ml/min/1.73 sqM); Potassium 3.6 mmol/L (3.5-5.1); Sodium 125 mmol/L (137-145)
[2016-09-11] MEDS: hydrALAZINE HCL 10 MG TAB PO SCH ×2 (08:33→22:12)
[2016-09-11] MEDS: amLODIPine 5 MG TAB PO SCH (08:33)
[2016-09-11] MEDS ORDERED: PANTOPRAZOLE 40 MG/10 ML VIAL IV SCH (09:00)
[2016-09-11] MEDS ORDERED: LOSARTAN-HCTZ 50-12.5 MG 1 EACH TAB PO SCH (09:00)
[2016-09-11] MEDS ORDERED: Acetaminophen-Codeine 300-30mg TAB PO PRN (12:57)
[2016-09-11] MEDS ORDERED: ASPIRIN 81 MG CHEW PO SCH (13:15)
[2016-09-11] MEDS: ENOXAPARIN 40 MG/0.4 ML SYRINGE SQ SCH (13:41)
[2016-09-11] MEDS: SODIUM CHLORIDE TAB 1 GM TAB PO SCH ×3 (13:41→22:12)
--- NOTE | 2016-09-11 13:42 | P.HPIM ---
History of Present Illness H&P Date: 09/11/16 Chief Complaint: weak and tired this is a pleasant 86-year-old patient who follows with . Patient chronic stable medical conditions include osteoarthritis, hypertension, gait dysfunction uses a walker. Patient is with her daughter who is at the bedside.patient last week had chest congestion went to see her family doctor and he prescribed Z-Job and steroids. Since then patient started throwing up , appetite went down and became more and more weak. Barely getting out of bed. Denies any fever. Bowels have been soft though every other day. Patient's forgetfulness is getting worse. Patient ihas a congested chest. Appetite has gone down , and patient not drinking much. throwing up anywhere from 1-3 times a day. Most of the history is furnished by the daughter. Per daughter patient getting increasingly confused Review of Systems GEN.: [weak and tired] EYES: [None] HEENT: [decreased hearing] NECK: [None] RESPIRATORY: [None] CARDIOVASCULAR: [None] GASTROINTESTINAL: [as above] GENITOURINARY: [None] MUSCULOSKELETAL: pain in different joints] LYMPHATICS: [None] HEMATOLOGICAL: [None] PSYCHIATRY: [as above] NEUROLOGICAL: None Past Medical History Past Medical History: Hypertension Additional Past Medical History / Comment(s): arthritis osteoporosis gait dysfunction-walker History of Any Multi-Drug Resistant Organisms: None Reported Additional Past Surgical History / Comment(s): right hip surgery Past Anesthesia/Blood Transfusion Reactions: No Reported Reaction Past Psychological History: No Psychological Hx Reported Smoking Status: Never smoker Past Alcohol Use History: None Reported Past Drug Use History: None Reported Additional History: patient lives with her daughter - Past Family History Mother History Unknown: Yes Family Medical History: Myocardial Infarction ([place]) Additional Family Medical History / Comment(s): passed from [place] in mid 50's Medications and Allergies Home Medications Medication Instructions Recorded Confirmed Type Losartan/Hydrochlorothiazide 1 tab PO DAILY 08/22/14 09/10/16 History [Losartan-Hctz 100-25 mg Tab] Aspirin EC [Ecotrin Low Dose] 81 mg PO MOTH 01/16/16 09/10/16 History Calcium Carbonate/Vitamin D3 1 tab PO DAILY 01/16/16 09/10/16 History [Calcium 500-Vit D3 600 Tablet] hydrALAZINE HCL [Apresoline] 10 mg PO BID 09/01/16 09/10/16 History Azithromycin [Zithromax Z-pack] See Taper PO DAILY 09/10/16 09/10/16 History Promethazine/Dextromethorphan 7.5 ml PO Q8H PRN 09/10/16 09/10/16 History [Promethazine-Dm Syrup] amLODIPine [Norvasc] 5 mg PO DAILY 09/10/16 09/10/16 History methylPREDNISolone [Medrol Dose See Taper PO DAILY 09/10/16 09/10/16 History Pack] Allergies Allergy/AdvReac Type Severity Reaction Status Date / Time No Known Allergies Allergy Verified 09/10/16 16:05 Physical Exam VITAL SIGNS: [98.5, 80, 20, 181/79, 98% room air] GENERAL: [thin built, laying in bed, tired appearing]. EYES: [Pupils equal. Conjunctiva katie]l. HEENT: [External appearance of nose and ears normal, oral cavity dry mucous membrane]. NECK: [JVD not raised; masses not palpable]. HEART: [First and second heart sounds are normal; no edema]. LUNGS:[ Respiratory rate normal; decreased breath sounds, mild crackles]. ABDOMEN: [Soft, nontender, liver spleen not palpable, no masses palpable]. LYMPHATICS: [No lymph nodes palpable in the axilla and neck]. PSYCH: [patient ableto simple questions otherwise confused]l. NEUROLOGICAL: [Cranial nerves grossly intact; no facial asymmetry, power and sensation grossly intact, moving all 4 limbs MUSCULAR skeletal: Evidence of osteoarthritis in multiple joints]. Results Results: white count 10.2, hemoglobin 12, platelets 358, pH 7.6 Sodium 122, chloride 87, BUNs 25 UA negative Chest x-ray reviewed by me shows some chronic changes CBC & Chem 7: 09/11/16 07:17 09/11/16 07:17 Assessment and Plan Plan: ASSESSMENT: -severe hyponatremia likely hypo-osmolar from decreased salt intake -Primary osteoarthritis of multiple joints bilateral -Essential hypertension urgency present on admission -Gait dysfunction at her baseline using a walker next and-medical debility multifactorial -Alzheimer's dementia late onset type worsening -Acute metabolic encephalopathy,present on admission -Metabolic alkalosis likely from volume contraction, from decreased oral intake PLAN: Patient will be given normal saline drip. We'll cut back on free fluid including coffee and water. Salt tablets to be added. We'll try the patient on a full liquid diet. Home medications be resumed. Hydrochlorothiazide will be discontinued. DVT prophylaxis given.fall precautions in place. Check serum osmolality. Follow electrolytes closely Advance care planning: Patient's overall guarded prognosis was discussed with the patient daughter at length she does understand the patient overall has been declining and concern about the same. She is agreed to proceed with changing code status to DO NOT RESUSCITATE.several questions were answered including the also touched about comfort care down the road if situation demands that. Time spent this was about 20-25 minutes in addition to the history and physical.
[2016-09-11] MEDS: SODIUM CHLORIDE 0.9% 1,000 ML IV SCH (13:43)
[2016-09-11] MEDS: LOSARTAN 25 MG TAB PO SCH (22:12)
[2016-09-12] MEDS: SODIUM CHLORIDE 0.9% 1,000 ML IV SCH ×4 (04:18→16:31)
[2016-09-12 07:59] LABS: Anion Gap 8 mmol/L; Blood Urea Nitrogen 15 mg/dL (7-17); Calcium 8.9 mg/dL (8.4-10.2); Carbon Dioxide 26 mmol/L (22-30); Chloride 99 mmol/L (98-107); Glucose 100 mg/dL (74-99); Non-African American GFR(MDRD) >60 (>60 ml/min/1.73 sqM); Sodium 133 mmol/L (137-145)
[2016-09-12 08:09] LABS: Potassium 2.9 mmol/L (3.5-5.1)
[2016-09-12] MEDS: amLODIPine 5 MG TAB PO SCH (08:26)
[2016-09-12] MEDS: LOSARTAN 25 MG TAB PO SCH ×2 (08:26→21:20)
[2016-09-12] MEDS: hydrALAZINE HCL 10 MG TAB PO SCH ×2 (08:26→21:20)
[2016-09-12] MEDS: SODIUM CHLORIDE TAB 1 GM TAB PO SCH ×4 (08:26→21:20)
[2016-09-12] MEDS: ENOXAPARIN 40 MG/0.4 ML SYRINGE SQ SCH (08:26)
[2016-09-12] MEDS: POTASSIUM CHLORIDE ER 20 MEQ TAB.ER PO SCH ×2 (08:36→12:26)
--- NOTE | 2016-09-12 16:24 | CT ---
EXAMINATION TYPE: CT brain wo con DATE OF EXAM: 09/12/2016 COMPARISON: 09/01/2016 HISTORY: Increased weakness CT DLP: 995.5 mGycm Automated exposure control for dose reduction was used. FINDINGS: There is extensive hypodensity in the periventricular white matter. There is no mass effect nor midli ne shift. There is no sign of intracranial hemorrhage. There is mild enlargement of the ventricles. T he calvarium is intact. There is mucosal thickening in the maxillary and ethmoid sinuses. IMPRESSION: CEREBRAL ATROPHY AND EXTENSIVE CHRONIC SMALL VESSEL ISCHEMIA. NORMAL PRESSURE TYPE HYDROCEPHALUS. NO CHANGE COMPARED TO OLD EXAM. MAXILLARY AND ETHMOID SINUSITIS.
[2016-09-12] MEDS: ATORVASTATIN 40 MG TAB PO SCH (16:29)
[2016-09-13 07:27] LABS: Anion Gap 6 mmol/L; Blood Urea Nitrogen 12 mg/dL (7-17); Calcium 8.8 mg/dL (8.4-10.2); Carbon Dioxide 24 mmol/L (22-30); Chloride 106 mmol/L (98-107); Glucose 97 mg/dL (74-99); Non-African American GFR(MDRD) >60 (>60 ml/min/1.73 sqM); Sodium 136 mmol/L (137-145)
[2016-09-13] MEDS: ENOXAPARIN 40 MG/0.4 ML SYRINGE SQ SCH (08:20)
[2016-09-13] MEDS: SODIUM CHLORIDE TAB 1 GM TAB PO SCH ×4 (08:20→21:55)
[2016-09-13] MEDS: hydrALAZINE HCL 10 MG TAB PO SCH ×2 (08:21→21:56)
[2016-09-13] MEDS: LOSARTAN 25 MG TAB PO SCH ×2 (08:21→21:56)
[2016-09-13] MEDS: ATORVASTATIN 40 MG TAB PO SCH (08:22)
[2016-09-13] MEDS: ASPIRIN 81 MG CHEW PO SCH (08:22)
[2016-09-13] MEDS: amLODIPine 5 MG TAB PO SCH (08:22)
[2016-09-13] MEDS: SODIUM CHLORIDE 0.9% 1,000 ML IV SCH (12:29)
--- NOTE | 2016-09-13 14:41 | FL ---
Modified barium swallow. HISTORY: Dysphagia. Modified barium swallow was performed with the department of speech pathology. The patient was prese nted with various consistencies of barium. Mild transient penetration with thin liquid barium. No evidence for aspiration. Full report is to fol low from the department of speech pathology. Impression: Mild transient penetration is noted.
--- NOTE | 2016-09-13 15:08 | P.PN ---
Progress Note - Text Progress Note - Text Date of service: September 12/2017 Presenting complaint: Tired Interval history: This patient was seen by me on September 12/2017. Admitted with hyponatremia, dehydration metabolic encephalopathy. Patient did tolerate some diet. Patient' s speech is somewhat slurred and was felt yesterday because of dry mouth. There is also some facial asymmetry. Patient continues to be confused answering some simple questions Review of systems cannot be obtained as patient is confused Current medications are reviewed and include IV fluids Lovenox Physical examination: VITAL SIGNS: 97, 90, 16, 166/69, 95% room air GENERAL: laying in bed, tired appearing]. EYES: Pupils equal. Conjunctiva normal. HEENT: External appearance of nose and ears normal, oral cavity dry mucous membrane. NECK: JVD not raised; masses not palpable. HEART: First and second heart sounds are normal; no edema. LUNGS: Respiratory rate normal; decreased breath sounds, mild crackles. ABDOMEN: Soft, nontender, liver spleen not palpable, no masses palpable. PSYCH: patient ableto simple questions otherwise confusedl. NEUROLOGICAL: Cranial nerves grossly intact; some fascial facial asymmetry, mild slightly pulled to the right power and sensation grossly intact, moving all 4 limbs Labs: Sodium 133, potassium 2.9 Assessment: -Possible subacute stroke symptoms were noted by the daughter and patient presented it wasn't clear that this was more from dry mouth, looking more prominent now -severe hyponatremia likely hypo-osmolar from decreased salt intake, improved -Primary osteoarthritis of multiple joints bilateral -Essential hypertension urgency present on admission -Gait dysfunction at her baseline using a walker next and-medical debility multifactorial -Alzheimer's dementia late onset type worsening -Acute metabolic encephalopathy,present on admission -Metabolic alkalosis likely from volume contraction, from decreased oral intak - Severe hypokalemia Plan: Patient started on daily aspirin. Computed tomography scan of the brain has been ordered without contrast. Did talk to the daughter she knows overall prognosis is guarded and want change the bigger picture. Continue to hydrate the patient. We will get speech therapy to eval and patient's swallowing is some concern about aspiration. Replace potassium
--- NOTE | 2016-09-13 16:48 | P.CNNES ---
History of Present Illness Consult date: 09/13/16 Requesting physician: Huy Huerta Reason for Consult: Mental status changes History of Present Illness: Patient is a pleasant 86-year-old female who is being seen on 2016 per the request of Dr. Huerta for mental status changes. Patient has medical history of hypertension, osteoarthritis, gait dysfunction, and mental confusion. Patient's daughter is at the bedside in much of the history is obtained from her. Daughter states patient has been more ataxic over the last few months with multiple falls. Daughter also reports patient experienced chest congestion and was placed on Z-Job per her primary care physician. Since then patient had been complaining of nausea and has been vomiting. Patient's daughter states patient had become weaker and more dehydrated and she decided to bring her to [facility] for further evaluation. On admission, blood pressure 157/68, pulse 84, temp 97.7, O2 sat 94% on room air. Patient was hypokalemic at 2.9 on admission. Potassium is 4.0 today. Computed tomography scan of the brain did show cerebral atrophy and extensive chronic small vessel ischemia. CT also showed normal pressure-type hydrocephalus. At the time of my evaluation, patient is sitting up at the bedside and appears to be in no acute distress. Review of Systems Insert review of systems statement Past Medical History Past Medical History: Hypertension Additional Past Medical History / Comment(s): arthritis osteoporosis gait dysfunction-walker History of Any Multi-Drug Resistant Organisms: None Reported Additional Past Surgical History / Comment(s): right hip surgery Past Anesthesia/Blood Transfusion Reactions: No Reported Reaction Past Psychological History: No Psychological Hx Reported Smoking Status: Never smoker Past Alcohol Use History: None Reported Past Drug Use History: None Reported - Past Family History Mother History Unknown: Yes Family Medical History: Myocardial Infarction ([place]) Additional Family Medical History / Comment(s): passed from [place] in mid 50's Medications and Allergies Home Medications Medication Instructions Recorded Confirmed Type Losartan/Hydrochlorothiazide 1 tab PO DAILY 08/22/14 09/10/16 History [Losartan-Hctz 100-25 mg Tab] Aspirin EC [Ecotrin Low Dose] 81 mg PO MOTH 01/16/16 09/10/16 History Calcium Carbonate/Vitamin D3 1 tab PO DAILY 01/16/16 09/10/16 History [Calcium 500-Vit D3 600 Tablet] hydrALAZINE HCL [Apresoline] 10 mg PO BID 09/01/16 09/10/16 History Azithromycin [Zithromax Z-pack] See Taper PO DAILY 09/10/16 09/10/16 History Promethazine/Dextromethorphan 7.5 ml PO Q8H PRN 09/10/16 09/10/16 History [Promethazine-Dm Syrup] amLODIPine [Norvasc] 5 mg PO DAILY 09/10/16 09/10/16 History methylPREDNISolone [Medrol Dose See Taper PO DAILY 09/10/16 09/10/16 History Pack] Allergies Allergy/AdvReac Type Severity Reaction Status Date / Time No Known Allergies Allergy Verified 09/10/16 16:05 Physical Examination - Vital Signs Vital Signs: Vital Signs Temp Pulse Pulse Resp BP BP Pulse Ox 09/13/16 15:00 97.3 F L 87 16 138/68 97 09/13/16 07:00 97.7 F 90 16 167/89 95 09/12/16 23:00 97.0 F L 86 17 163/77 95 Intake and Output 09/13/16 09/13/16 09/13/16 06:59 14:59 22:59 Intake Total 480 Balance 480 Intake: Oral 480 Other: Voiding Method Diaper Diaper # Voids 5 4 PHYSICAL EXAM: GENERAL APPEARANCE: Patient is a well-developed, female who appears to be in no acute distress. HEENT: Normocephalic, atraumatic, no facial asymmetry is seen. Neck is supple with no masses felt. CARDIOVASCULAR: Regular rate and rhythm. ABDOMEN: Nontender, nondistended. EXTREMITIES: Show no edema or clubbing. NEUROLOGICAL EXAM: Patient is awake, alert, and oriented 2. Patient is unaware of the year. Speech and language are normal. Strength is full in all 4 extremities. Sensory exam to light touch is normal in all 4 extremities. No facial asymmetry is seen on cranial nerve testing. No tremors or seizure-like activity is noted. Results - Laboratory Findings CBC and BMP: 09/11/16 07:09/13/16 06:25 Abnormal Lab Findings: Abnormal Labs 09/10/16 09/10/16 09/10/16 18:30 18:30 18:30 Plt Count Neutrophils # 9.2 H Lymphocytes # 0.4 L VBG pH 7.60 H* VBG pCO2 26 L Sodium 122 L Potassium Chloride 87 L BUN 25 H Glucose 112 H Osmolality Alkaline Phosphatase 132 H 09/11/16 09/11/16 09/11/16 07:17 07:17 07:17 Plt Count 456 H Neutrophils # Lymphocytes # VBG pH VBG pCO2 Sodium 125 L Potassium Chloride 89 L BUN 22 H Glucose Osmolality 260 L Alkaline Phosphatase 09/12/16 07 07:15 06:25 Plt Count Neutrophils # Lymphocytes # VBG pH VBG pCO2 Sodium 133 L 136 L Potassium 2.9 L* Chloride BUN Glucose 100 H Osmolality Alkaline Phosphatase Assessment and Plan (1) Metabolic encephalopathy Status: Acute (2) Nausea & vomiting Status: Acute (3) Dehydration Status: Acute (4) Fall Status: Acute Plan: It appears patient mental status changes are due to acute metabolic encephalopathy. Patient did present with hyponatremia, and dehydration. Daughter also informs me patient has history of Alzheimer's dementia which has been worsening lately. Patient does have a triad of symptoms related to normal pressure hydrocephalus and confirmation on computed tomography scan. NPH can be worked up as an outpatient. Patient will need to have lumbar puncture done with opening pressure and large volume drainage. I will order an EEG. Continue neurological checks. Continue current medical management. I will continue to follow with you. Thank you for allowing me to participate in the care of your patient. Feel free to call with any questions or concerns. I performed an examination of the patient and discussed the management with the DEAF/HARD OF HEARING SPECIALIST. I have reviewed the DEAF/H[employer] OF HEARING SPECIALIST notes and agree with the findings and plan of care.
--- NOTE | 2016-09-13 17:11 | P.PN ---
<Corin Mack - Last Filed: 09/13/16 19:01> Progress Note - Text Presenting complaint: Tired Interval history: This patient was admitted with hyponatremia, dehydration metabolic encephalopathy. Patient did tolerate some diet. Patient's speech is somewhat slurred and was felt yesterday because of dry mouth. There is also some facial asymmetry. Patient continues to be confused answering some simple questions 09/13/2016: Patient seen in follow-up, patient awake alert, able to answer simple questions, daughter at the bedside. Patient ate about 30% of her breakfast. Patient is a one-to-one feed, nectar thick liquids per speech therapy. Review of systems cannot be obtained as patient is confused Current medications are reviewed and include IV fluids Lovenox Physical examination: VITAL SIGNS: Temperature 97.9, pulse 90, respirations 16, blood pressure 167/89 , oxygen saturation 95% on room air. GENERAL: Sitting up in bed, more awake.]. EYES: Pupils equal. Conjunctiva normal. HEENT: External appearance of nose and ears normal, oral cavity dry mucous membrane, bony structure noted at the roof of the mouth, does not bother patient nor does it impede swallowing. NECK: JVD not raised; masses not palpable. HEART: First and second heart sounds are normal; no edema. LUNGS: Respiratory rate normal; decreased breath sounds, mild crackles. ABDOMEN: Soft, nontender, liver spleen not palpable, no masses palpable. PSYCH: patient ableto simple questions otherwise confused. NEUROLOGICAL: Cranial nerves grossly intact; some facial asymmetry, mild slightly pulled to the right power and sensation grossly intact, moving all 4 limbs Labs: Sodium 136, potassium 4.0, BUN 12, creatinine 0.66, calcium 8.8. Assessment: -Acute metabolic encephalopathy, likely secondary to hyponatremia and dehydration, improving -severe hyponatremia likely hypo-osmolar from decreased salt intake, improving -Primary osteoarthritis of multiple joints bilateral -Essential hypertension urgency present on admission -Gait dysfunction at her baseline using a walker -medical debility multifactorial -Alzheimer's dementia late onset type worsening -Acute metabolic encephalopathy,present on admission -Metabolic alkalosis likely from volume contraction, from decreased oral intake - Severe hypokalemia, resolved Plan: Continue current medication and treatment plan. Speech therapy recommends nectar thick liquids and one-to-one feeding. Discharge planning possibly to rehabilitation Center PHYSICIAN SPECIALIST statement: Patient was seen and examined by nurse practitioner Corin Mack and all elements of the case discussed with attending Dr. Huerta. <Huy Huerta - Last Filed: 09/13/16 19:09> Progress Note - Text Attending note. Date of service-09/13/2016. This patient was seen and examined by me earlier today. I reviewed the note of my nurse practitioner Pranavrhiannon. Discussed, initial findings below This patient admitted with severe hyponatremia causing metabolic encephalopathy that actually is greatly improved. Does question about stroke but it seems that patient's symptoms could additionally be explained by finding of normal pressure hydrocephalus on the computed tomography scan of brain. Patient doing better sitting up in a chair eating. Daughter the bedside. Patient's found to have some mild aspiration on modified barium swallow. On examination: Patient able also simple questions. Lungs decreased breath sounds. Assessment: -Normal pressure hydrocephalus -Dysphagia with element of aspiration Plan: Care was discussed with the daughter. She discussed to have the patient long- term placement at this point looking into rehab placement of [facility]. Patient is put on nectar thick liquids. Lumbar puncture being considered by neurology for follow-up. Total time spent today about 35-40 minutes with 20 minutes of discussion
[2016-09-14 07:06] VITALS: BP 169/91; PULSE 98; RESP 18; TEMP 97.6
[2016-09-14 08:07] LABS: Anion Gap 8 mmol/L; Blood Urea Nitrogen 8 mg/dL (7-17); Calcium 9.1 mg/dL (8.4-10.2); Carbon Dioxide 24 mmol/L (22-30); Chloride 103 mmol/L (98-107); Glucose 112 mg/dL (74-99); Non-African American GFR(MDRD) >60 (>60 ml/min/1.73 sqM); Potassium 3.6 mmol/L (3.5-5.1); Sodium 135 mmol/L (137-145)
[2016-09-14] MEDS: amLODIPine 5 MG TAB PO SCH (08:30)
[2016-09-14] MEDS: ENOXAPARIN 40 MG/0.4 ML SYRINGE SQ SCH (08:30)
[2016-09-14] MEDS: ATORVASTATIN 40 MG TAB PO SCH (08:30)
[2016-09-14] MEDS: ASPIRIN 81 MG CHEW PO SCH (08:30)
[2016-09-14] MEDS: SODIUM CHLORIDE TAB 1 GM TAB PO SCH ×2 (08:31→14:34)
[2016-09-14] MEDS: hydrALAZINE HCL 10 MG TAB PO SCH (08:31)
[2016-09-14] MEDS: LOSARTAN 25 MG TAB PO SCH (08:31)
[2016-09-14 10:30] VITALS: BMI 20.5
--- NOTE | 2016-09-14 13:38 | P.DS ---
Providers Date of admission: 09/10/16 19:25 Expected date of discharge: 09/14/16 Attending physician: Huy Huerta Consults: 09/12/16 17:49 Consult Physician Routine Consulting Provider: Heath Licea Consult Reason/Comments: mental status change Do you want consulting provider notified?: Yes Primary care physician: Levi Escalona Hospital Course: Hospital course: This very pleasant patient admitted with severe hyponatremia. Sodium was down to 122 did come up nicely to 135 prior to discharge. Treated with fluid restriction and salt tablets. This also explained her encephalopathy was likely is improved. Patient also felt to have an acute stroke given aspirin and Lipitor for the same. Given her age and not aggressive treatment was done. Patient also found on the CAT scan to have normal pressure hydrocephalus. Had a lengthy talk with the patient ordered today she is not keen she is not at this point keen for any lumbar puncture and was see if she changes her mind. Patient also having some dysphagia hence put on mechanical soft diet and nectar thick liquids. Advance directives was discussed and patient is a DO NOT RESUSCITATE. Patient is able to simple questions able to feed herself. Patient did have a modified barium swallow that showed dysphagia hence the above diet was placed Discharge planning more than 35 minutes CODE STATUS: DO NOT RESUSCITATE Discharge diagnoses: -Possible acute stroke, ischemic in a right-handed patient. -severe hyponatremia likely hypo-osmolar from decreased salt intake, improved -Primary osteoarthritis of multiple joints bilateral -Essential hypertension urgency present on admission -Gait dysfunction at her baseline using a walker -medical debility multifactorial -Alzheimer's dementia late onset type worsening -Acute metabolic encephalopathy,present on admission, due to hyponatremia -Metabolic alkalosis likely from volume contraction, from decreased oral intak - Severe hypokalemia -Normal pressure hydrocephalus, new diagnosis, present on admission -Dysphagia mild Patient Condition at Discharge: Stable Plan - Discharge Summary New Discharge Prescriptions: New Atorvastatin [Lipitor] 40 mg PO DAILY tab amLODIPine [Norvasc] 10 mg PO DAILY #1 tablet Losartan [Cozaar] 100 mg PO HS #1 tab Continue Calcium Carbonate/Vitamin D3 [Calcium 500-Vit D3 600 Tablet] 1 tab PO DAILY Aspirin EC [Ecotrin Low Dose] 81 mg PO MOTH Discontinued Losartan/Hydrochlorothiazide [Losartan-Hctz 100-25 mg Tab] 1 tab PO DAILY hydrALAZINE HCL [Apresoline] 10 mg PO BID amLODIPine [Norvasc] 5 mg PO DAILY methylPREDNISolone [Medrol Dose Pack] See Taper PO DAILY Azithromycin [Zithromax Z-pack] See Taper PO DAILY Promethazine/Dextromethorphan [Promethazine-Dm Syrup] 7.5 ml PO Q8H PRN PRN Reason: Cough Discharge Medication List Aspirin EC [Ecotrin Low Dose] 81 mg PO MOTH 01/16/16 [History] Calcium Carbonate/Vitamin D3 [Calcium 500-Vit D3 600 Tablet] 1 tab PO DAILY 08/25 [History] Atorvastatin [Lipitor] 40 mg PO DAILY tab 09/14/16 [Rx] Losartan [Cozaar] 100 mg PO HS #1 tab 09/14/16 [Rx] amLODIPine [Norvasc] 10 mg PO DAILY #1 tablet 09/14/16 [Rx] Follow up Appointment(s)/Referral(s): Dillon Cummins DO [STAFF PHYSICIAN] - (1-2 days) Levi Escalona MD [Primary Care Provider] - As Needed Heath Licea MD [STAFF PHYSICIAN] - 3 Weeks (patient to follow up in 4-6 weeks) Ambulatory/Diagnostic Orders: Basic Metabolic Panel [LAB.AMB] Location: Determined By Patient Complete Blood Count w/diff [LAB.AMB] Location: Determined By Patient Activity/Diet/Wound Care/Special Instructions: mechanical soft/thin liquids feeding supervised Discharge Disposition: TRANSFER TO SNF/ECF
[2016-09-14] MEDS: SODIUM CHLORIDE 0.9% 1,000 ML IV SCH (14:44)
== END 2016-09-14 14:46 | DRG 640 ==
LOC: EC 15:43 → 4MS4W 19:25
PROVIDERS: ADMIT Hospitalist; ATTEND Hospitalist
DX: E87.1 Hypo-osmolality and hyponatremia (principal); G93.41 Metabolic encephalopathy; E86.0 Dehydration; G91.2 (Idiopathic) normal pressure hydrocephalus; E87.3 Alkalosis; R13.10 Dysphagia, unspecified; G30.1 Alzheimer's disease with late onset; F02.80 Dementia in other diseases classified elsewhere, unspecified severity, without behavioral disturbance, psychotic disturbance, mood disturbance, and anxiety; I10 Essential (primary) hypertension; M19.91 Primary osteoarthritis, unspecified site; Z66 Do not resuscitate; R27.0 Ataxia, unspecified; R29.6 Repeated falls; E87.6 Hypokalemia; M81.0 Age-related osteoporosis without current pathological fracture; Z79.82 Long term (current) use of aspirin; Z79.899 Other long term (current) drug therapy
CPT/HCPCS: 36415; 70450; 71020; 74000; 74230; 80048; 80053; 81003; 82803; 83605; 83690; 83930; 84132; 84484; 85025; 93005

== ENCOUNTER 2019-01-10 20:09 | Inpatient (IN) | payer MEDICARE, OTHER ==
[2019-01-10] MEDS ORDERED: SODIUM CHLORIDE 0.9% 1,000 ML IV STA (20:26)
[2019-01-10] MEDS ORDERED: IPRATROPIUM-ALBUTEROL 3 ML NEB INHALATION STA (20:26)
--- NOTE | 2019-01-10 20:30 | ED ---
SOB HPI - General Stated Complaint: Poss Pneumonia Time Seen by Provider: 01/10/19 20:19 Source: RN notes reviewed, old records reviewed, Caregiver Mode of arrival: EMS Limitations: altered mental status, physical limitation - History of Present Illness Initial Comments: This is a 78-year-old female with history of dementia presenting shortness of breath. Patient with increased cough. Outpatient treatment for pneumonia with pneumonia increasing oxygen level decreasing. Patient has severe dementia unable to give history history obtained from transfer paperwork as well as EMS. Daughter is at bedside and states patient has been increasingly worsening over the last 2 days and was much more decreased responsiveness today decreased appetite and increased cough with difficulty breathing MD Complaint: shortness of breath, cough -: days(s) Severity: moderate, severe Severity scale (1-10): 7 Quality: other (Patient denying complaint) Consistency: constant Improves With: oxygen, rest, bronchodilators Worsens With: exertion Known History Of: recurrent pneumonia Context: recent URI Associated Symptoms: denies other symptoms - Related Data Home Medications Medication Instructions Recorded Confirmed Aspirin EC [Ecotrin Low Dose] 81 mg PO MOTH 01/16/16 01/10/19 Calcium Carbonate/Vitamin D3 1 tab PO DAILY@0800 01/16/16 01/10/19 [Calcium 500-Vit D3 600 Tablet] Acetaminophen [Tylenol Arthritis] 650 mg PO Q4H PRN 01/10/19 01/10/19 Albuterol Nebulized [Ventolin 2.5 mg INHALATION RT-Q6H 01/10/19 01/10/19 Nebulized] Atorvastatin [Lipitor] 40 mg PO HS@2100 01/10/19 01/10/19 Bisacodyl [Dulcolax] 10 mg RECTAL DAILY PRN 01/10/19 01/10/19 Cholecalciferol (Vitamin D3) 2,000 unit PO DAILY@0800 01/10/19 01/10/19 [Vitamin D3] Ferrous Sulfate [Feosol] 325 mg PO DAILY@0800 01/10/19 01/10/19 Levofloxacin [Levaquin] 250 mg PO DIRECTED 01/10/19 01/10/19 Losartan Potassium [Cozaar] 100 mg PO DAILY@0800 01/10/19 01/10/19 Magnesium Hydroxide [Milk of 2,400 mg PO DAILY PRN 01/10/19 01/10/19 Magnesia] Na Phos,M-B/Na Phos,Di-Ba [Fleet 133 ml RECTAL DAILY PRN 01/10/19 01/10/19 Adult] Ranitidine HCl [Zantac] 150 mg PO BID@0800,1700 01/10/19 01/10/19 amLODIPine [Norvasc] 10 mg PO DAILY@0800 01/10/19 01/10/19 guaiFENesin [Mucinex] 600 mg PO Q12HR 01/10/19 01/10/19 hydrALAZINE HCL [Apresoline] 100 mg PO BID@0800,1700 01/10/19 01/10/19 Allergies Allergy/AdvReac Type Severity Reaction Status Date / Time No Known Allergies Allergy Verified 01/10/19 21:17 Review of Systems ROS Statement: Those systems with pertinent positive or pertinent negative responses have been documented in the HPI. ROS Other: All systems not noted in ROS Statement are negative. Past Medical History Past Medical History: Hypertension Additional Past Medical History / Comment(s): arthritis osteoporosis gait dysfunction-walker History of Any Multi-Drug Resistant Organisms: None Reported Additional Past Surgical History / Comment(s): right hip surgery Past Anesthesia/Blood Transfusion Reactions: No Reported Reaction Past Psychological History: No Psychological Hx Reported Smoking Status: Never smoker Past Alcohol Use History: None Reported Past Drug Use History: None Reported - Past Family History Mother History Unknown: Yes Family Medical History: Myocardial Infarction ([place]) Additional Family Medical History / Comment(s): passed from [place] in mid 50's General Exam General appearance: alert, in no apparent distress Head exam: Present: atraumatic, normocephalic, normal inspection Eye exam: Present: normal appearance, PERRL, EOMI. Absent: scleral icterus, conjunctival injection, periorbital swelling ENT exam: Present: normal exam, mucous membranes moist Neck exam: Present: normal inspection. Absent: tenderness, meningismus, lymphadenopathy Respiratory exam: Present: respiratory distress, wheezes, rhonchi, accessory muscle use, decreased breath sounds (no BS Left lung), prolonged expiratory. Absent: rales, stridor Cardiovascular Exam: Present: regular rate, normal rhythm, normal heart sounds. Absent: systolic murmur, diastolic murmur, rubs, gallop, clicks GI/Abdominal exam: Present: soft, normal bowel sounds. Absent: distended, tenderness, guarding, rebound, rigid Extremities exam: Present: normal inspection, full ROM, normal capillary refill. Absent: tenderness, pedal edema, joint swelling, calf tenderness Back exam: Present: normal inspection Neurological exam: Present: alert, oriented X3, CN II-XII intact Psychiatric exam: Present: normal affect, normal mood Skin exam: Present: warm, dry, intact, normal color. Absent: rash Course Vital Signs 01/10/19 01/10/19 01/10/19 20:37 21:00 21:05 Pulse Rate 77 73 76 Respiratory 20 22 Rate Blood Pressure 152/79 128/72 O2 Sat by Pulse 91 L 92 L Oximetry 01/10/19 01/10/19 21:25 21:30 Pulse Rate 78 77 Respiratory 22 Rate Blood Pressure 133/74 O2 Sat by Pulse 90 L Oximetry - Reevaluation(s) Reevaluation #1: 01/10/19 22:25 Medical record is reviewed Reevaluation #2: 01/10/19 22:25 Patient with no significant improvement significant hypoxic requiring supportive oxygen secondary significant left lung atelectasis either mucous plug Labadie mass seems to be in for imaging on the left mainstem Reevaluation #3: 01/10/19 22:26 Patient is status still DO NOT RESUSCITATE - Consultations Consultation #1: Spoke with Dr. Huerta will admit Medical Decision Making - Medical Decision Making 88 female with significant atelectasis left lung base treated for outpatient pneumonia with increasing hypoxia. Patient is DO NOT RESUSCITATE status no resuscitation no code secondary to dementia underlying illness. Patient will be admitted for further evaluation management - Lab Data Result diagrams: 01/10/19 20:30 01/10/19 20:30 Lab Results 01/10/19 01/10/19 01/10/19 Range/Units 20:30 20:30 20:30 WBC 15.1 H (3.8-10.6) k/uL RBC 4.25 (3.80-5.40) m/uL Hgb 13.2 (11.4-16.0) gm/dL Hct 40.1 (34.0-46.0) % MCV 94.3 (80.0-100.0) fL MCH 31.1 (25.0-35.0) pg MCHC 32.9 (31.0-37.0) g/dL RDW 14.5 (11.5-15.5) % Plt Count 370 (150-450) k/uL Neutrophils % 88 % Lymphocytes % 5 % Monocytes % 4 % Eosinophils % 1 % Basophils % 1 % Neutrophils # 13.3 H (1.3-7.7) k/uL Lymphocytes # 0.8 L (1.0-4.8) k/uL Monocytes # 0.5 (0-1.0) k/uL Eosinophils # 0.1 (0-0.7) k/uL Basophils # 0.1 (0-0.2) k/uL PT 10.3 (9.0-12.0) sec INR 1.0 (<1.2) APTT 27.0 (22.0-30.0) sec Sodium 136 L (137-145) mmol/L Potassium 3.8 (3.5-5.1) mmol/L Chloride 102 (98-107) mmol/L Carbon Dioxide 27 (22-30) mmol/L Anion Gap 7 mmol/L BUN 29 H (7-17) mg/dL Creatinine 0.96 (0.52-1.04) mg/dL Est GFR (CKD-EPI)AfAm 62 (>60 ml/min/1.73 sqM) Est GFR (CKD-EPI)NonAf 53 (>60 ml/min/1.73 sqM) Glucose 61 L (74-99) mg/dL Calcium 9.3 (8.4-10.2) mg/dL Magnesium 2.2 (1.6-2.3) mg/dL Total Bilirubin 1.2 (0.2-1.3) mg/dL AST 45 H (14-36) U/L ALT 29 (9-52) U/L Alkaline Phosphatase 168 H (38-126) U/L Creatine Kinase 44 (30-135) U/L Troponin I (0.000-0.034) ng/mL NT-Pro-B Natriuret Pep pg/mL Total Protein 6.0 L (6.3-8.2) g/dL Albumin 3.1 L (3.5-5.0) g/dL 01/10/19 01/10/19 Range/Units 20:30 20:30 WBC (3.8-10.6) k/uL RBC (3.80-5.40) m/uL Hgb (11.4-16.0) gm/dL Hct (34.0-46.0) % MCV (80.0-100.0) fL MCH (25.0-35.0) pg MCHC (31.0-37.0) g/dL RDW (11.5-15.5) % Plt Count (150-450) k/uL Neutrophils % % Lymphocytes % % Monocytes % % Eosinophils % % Basophils % % Neutrophils # (1.3-7.7) k/uL Lymphocytes # (1.0-4.8) k/uL Monocytes # (0-1.0) k/uL Eosinophils # (0-0.7) k/uL Basophils # (0-0.2) k/uL PT (9.0-12.0) sec INR (<1.2) APTT (22.0-30.0) sec Sodium (137-145) mmol/L Potassium (3.5-5.1) mmol/L Chloride (98-107) mmol/L Carbon Dioxide (22-30) mmol/L Anion Gap mmol/L BUN (7-17) mg/dL Creatinine (0.52-1.04) mg/dL Est GFR (CKD-EPI)AfAm (>60 ml/min/1.73 sqM) Est GFR (CKD-EPI)NonAf (>60 ml/min/1.73 sqM) Glucose (74-99) mg/dL Calcium (8.4-10.2) mg/dL Magnesium (1.6-2.3) mg/dL Total Bilirubin (0.2-1.3) mg/dL AST (14-36) U/L ALT (9-52) U/L Alkaline Phosphatase (38-126) U/L Creatine Kinase (30-135) U/L Troponin I <0.012 (0.000-0.034) ng/mL NT-Pro-B Natriuret Pep 2010 pg/mL Total Protein (6.3-8.2) g/dL Albumin (3.5-5.0) g/dL - EKG Data -: EKG Interpreted by Me (EKG shows sinus rhythm rate of 77, ND 152, QRS 124, QTC 47) - Radiology Data Radiology results: report reviewed (Chest x-ray CT chest showed no obvious discrete mass 50 show significant atelectasis or compressive atelectasis of left lung), image reviewed Critical Care Time Critical Care Time: Yes Total Critical Care Time: 31 Disposition Clinical Impression: DNR no code (do not resuscitate), Community acquired pneumonia, Atelectasis of left lung, Failure of outpatient treatment, Hypoxia Disposition: ADMITTED IP TO THIS [facility] Condition: Serious Is patient prescribed a controlled substance at d/c from ED?: No Referrals: Dillon Cummins DO [Primary Care Provider] - 1-2 days
[2019-01-10 20:43] LABS: Basophils # (A) 0.1 k/uL (0-0.2); Basophils % (A) 1 %; Eosinophils # (A) 0.1 k/uL (0-0.7); Eosinophils % (A) 1 %; HCT 40.1 % (34.0-46.0); HGB 13.2 gm/dL (11.4-16.0); Lymphocytes # (A) 0.8 k/uL (1.0-4.8); Lymphocytes % (A) 5 %; MCH 31.1 pg (25.0-35.0); MCHC 32.9 g/dL (31.0-37.0); MCV 94.3 fL (80.0-100.0); Mean Platelet Volume 8.3; Monocytes # (A) 0.5 k/uL (0-1.0); Monocytes % (A) 4 %; Neutrophils # (A) 13.3 k/uL (1.3-7.7); Neutrophils % (A) 88 %; Platelet Count 370 k/uL (150-450); RBC 4.25 m/uL (3.80-5.40); RDW 14.5 % (11.5-15.5); WBC 15.1 k/uL (3.8-10.6)
[2019-01-10 20:53] LABS: Albumin 3.1 g/dL (3.5-5.0); Calcium 9.3 mg/dL (8.4-10.2); Magnesium 2.2 mg/dL (1.6-2.3); Potassium 3.8 mmol/L (3.5-5.1); Total Bilirubin 1.2 mg/dL (0.2-1.3)
[2019-01-10 21:00] LABS: Prothrombin Time 10.3 sec (9.0-12.0)
--- NOTE | 2019-01-10 21:04 | XR ---
EXAMINATION TYPE: XR chest 1V portable DATE OF EXAM: 01/10/2019 COMPARISON: September 10, 2016 HISTORY: Short of breath cough TECHNIQUE: Single frontal view of the chest is obtained. FINDINGS: Heart and mediastinum are shifted to the left side. There is significant opacification lef t hemithorax. There is blunting of right costophrenic angle. There are chest leads. IMPRESSION: Pleural effusions with significant volume loss in the left hemithorax. The possibility o f a mass at the left pulmonary hilum with obstruction of the left bronchus should be considered. This is a change compared to old exam. No heart failure.
[2019-01-10] MEDS ORDERED: RX INFO: IV CONTRAST WAS GIVEN 1 EACH MISC MISCELLANE PRN (21:35)
--- NOTE | 2019-01-10 22:07 | CT ---
EXAMINATION TYPE: CT chest w con DATE OF EXAM: 01/10/2019 COMPARISON: HISTORY: Shortness of breath. CT DLP: 275.3 mGycm Automated exposure control for dose reduction was used. CONTRAST: CT scan of the chest is performed with IV Contrast, patient injected with 80ml mL of Isovue 300. FINDINGS: There is large left pleural effusion. There is extensive consolidation and atelectasis in the left shereen ng. I see no evidence of a bronchial mass. There is narrowing of the left mainstem bronchus. Heart an d mediastinum are shifted to the left side. I see no definite mediastinal adenopathy. There is a mild right pleural effusion and right basilar atelectasis. There is a moderate hiatal hernia. Images through the upper abdomen show a 6.2 cm cyst in the left upper quadrant that could be pancreat ic pseudocyst. There is mild enlargement of left and right adrenal gland with hypodensity. There is v vishnu little aeration of the left lung. There is thoracic kyphotic deformity with anterior wedging of m id thoracic vertebra up to 70%. There is involvement of T10 T8 T7 and T6 vertebra. I see no focal bon e destruction. IMPRESSION: There is significant atelectasis of the left lung with mild left pleural effusion. Small right pleural effusion and right basilar atelectasis. Narrowing of the left mainstem bronchus. No de finite central mass seen. Mild cardiomegaly. There is enlargement of left and right adrenal gland that is new compared to old e xam and could relate to metastatic disease. Multiple thoracic abnormalities are new compared to old e xam. Multiple osteoporotic type thoracic compression fractures.
[2019-01-10] MEDS ORDERED: LEVOFLOXACIN 750MG-D5W PMX 750 MG in DEXTROSE/WATER 1 150ML.BAG IVPB STA (22:23)
[2019-01-10] MEDS ORDERED: PNEUMONIA PROTOCOL UTILIZED 1 EACH MISC PO PRN (22:23)
[2019-01-10] MEDS ORDERED: PIPERACILLIN-TAZOBACTAM 3.375 GM in SODIUM CHLORIDE 0.9% 100 ML IVPB STA (22:23)
[2019-01-10 23:12] VITALS: BMI 21.7
[2019-01-10] MEDS ORDERED: LEVOFLOXACIN 750MG-D5W PMX 750 MG in DEXTROSE/WATER 1 150ML.BAG IVPB ONE (23:30)
[2019-01-10] MEDS: SODIUM CHLORIDE 0.9% 1,000 ML IV SCH (23:49)
[2019-01-11] MEDS: PIPERACILLIN-TAZOBACTAM 3.375 GM in SODIUM CHLORIDE 0.9% 100 ML IVPB SCH ×2 (05:32→13:43)
[2019-01-11] MEDS: SODIUM CHLORIDE 0.9% 1,000 ML IV SCH ×2 (07:51→21:32)
[2019-01-11] MEDS: IPRATROPIUM-ALBUTEROL 3 ML NEB INHALATION SCH ×4 (08:55→20:03)
[2019-01-11] MEDS ORDERED: BISACODYL 10 MG SUPP RECTAL PRN (10:38)
[2019-01-11] MEDS ORDERED: ACETAMINOPHEN TAB 325 MG TAB PO PRN (10:38)
[2019-01-11] MEDS ORDERED: MAGNESIUM HYDROXIDE 2,400 MG/10 ML CUP PO PRN (10:38)
[2019-01-11] MEDS ORDERED: NA PHOS,M-B/NA PHOS,DI-BA 133 ML ENEMA RECTAL PRN (10:38)
--- NOTE | 2019-01-11 10:41 | XR ---
EXAMINATION TYPE: XR chest 2V DATE OF EXAM: 01/11/2019 HISTORY: pneumonia. REFERENCE: Previous study dated 01/10/2019. FINDINGS: The lungs are overinflated. There are bilateral pleural effusions, much greater on the left than the right. There is shift of the mediastinal structures towards the left. There is bibasilar ai rspace disease, much worse on the left than right. Heart size is obscured. I could not exclude a hiat al hernia behind the heart. IMPRESSION: NO SIGNIFICANT INTERVAL CHANGE IN THE APPEARANCE THE CHEST.
[2019-01-11] MEDS ORDERED: hydrALAZINE HCL 50 MG TAB PO SCH (11:00)
[2019-01-11] MEDS: amLODIPine 10 MG TAB PO SCH (12:03)
[2019-01-11] MEDS: LOSARTAN 50 MG TAB PO SCH (12:03)
[2019-01-11] MEDS: guaiFENesin 600 MG TABLET.ER PO SCH ×2 (12:03→21:32)
--- NOTE | 2019-01-11 15:43 | P.HPIM ---
History of Present Illness H&P Date: 01/11/19 Chief Complaint: Worsening cough History of presenting complaint: This is a 88-year-old patient who is being followed by Dr. Cummins at [facility]. Chronic stable medical conditions include Alzheimer's dementia, hypertension, osteoarthritis, medical debility, uses a wheelchair, normal pressure hydrocephalus,. History is obtained by the daughter the bedside so was also patient's DURABLE POWER OF EXECUTIVE SALES ASSISTANT. Patient had a baseline can just about recognize her daughter. Is on a pured diet. Does need some assistance. For about 10 days has been diagnosed with pneumonia was started on oral antibiotics. Not improving. Getting worse with worsening shortness of breath cough congested. Not able to expectorate. Brought into the ER. Found to have worsening pneumonia. Admitted. Was started on IV Levaquin and Zosyn. Patient rather tired and exhausted. Review of systems could not be done as patient not able to come see communicate. Most of those supportive history is obtained by the daughter the bedside. Social history: No smoking. No alcohol. Resident of [facility]. DaughterSue is the DURABLE POWER OF EXECUTIVE SALES ASSISTANT. Physical examination: VITAL SIGNS: 97.3, 78, 16, 145/70, 95% on 6 L GENERAL: [BMI 21.8, laying in bed, lethargic. EYES: Pupils equal. Conjunctiva normal. HEENT: External appearance of nose and ears normal, oral cavity grossly normal. NECK: JVD unable to assess; masses not palpable. HEART: First and second heart sounds are normal; no edema. LUNGS:[ Respiratory rate increased, increased breath sound extremity crackles, audible crackles in the chest. ABDOMEN: Soft, nontender, liver spleen not palpable, no masses palpable. PSYCH: Lethargic but arousablel. NEUROLOGICAL: [Cranial nerves grossly intact; no facial asymmetry, does move her limbs LYMPHATICS: No lymph nodes palpable in the axilla and neck MUSCULOSKELETAL: Severe arthritis of the hands, knees INVESTIGATIONS, reviewed in the clinical context: White count 15.1 hemoglobin 13.2 potassium 3.8 bun 29 creatinine 0.96 Troponin I less than 0.012 proBNP 2009 EKG tracing personally reviewed by me-right bundle-branch block Chest x-ray film personally reviewed by me-significant infiltrate on the left side, cannot rule out pleural effusion Assessment: -Severe pneumonia multilobar on the left side, strongly suspect aspiration pneumonia and associated atelectasis. -Advanced Alzheimer's dementia, with major cognitive impairment -Acute hypoxic respiratory failure from pneumonia -Headedness medical debility patient does use a wheelchair -Hypoalbuminemia likely from mild protein calorie malnutrition from decreased oral intake -Normal pressure hydrocephalus -Essential hypertension -Advanced primary osteoarthritis -Acute metabolic encephalopathy from pneumonia -DO NOT RESUSCITATE Plan: Patient antibiotics will be switched to IV cefepime. We'll do aspiration prec autions. We'll make the patient nothing by mouth. Get speech therapy involved. Prognosis is guarded. Did talk with the daughter. Patient is a DO NOT RESUSCITATE. We'll get a pulmonary opinion. Care was discussed with the daughter the bedside. Past Medical History Past Medical History: Dementia, Hypertension, Pneumonia, Renal Disease Additional Past Medical History / Comment(s): arthritis osteoporosis gait dysfunction-walker History of Any Multi-Drug Resistant Organisms: None Reported Additional Past Surgical History / Comment(s): right hip surgery Past Anesthesia/Blood Transfusion Reactions: No Reported Reaction Past Psychological History: No Psychological Hx Reported Smoking Status: Never smoker Past Alcohol Use History: None Reported Past Drug Use History: None Reported - Past Family History Mother History Unknown: Yes Family Medical History: Myocardial Infarction ([place]) Additional Family Medical History / Comment(s): passed from [place] in mid 50's Medications and Allergies Home Medications Medication Instructions Recorded Confirmed Type Aspirin EC [Ecotrin Low Dose] 81 mg PO MOTH 01/16/16 01/10/19 History Calcium Carbonate/Vitamin D3 1 tab PO DAILY@0800 01/16/16 01/10/19 History [Calcium 500-Vit D3 600 Tablet] Acetaminophen [Tylenol Arthritis] 650 mg PO Q4H PRN 01/10/19 01/10/19 History Albuterol Nebulized [Ventolin 2.5 mg INHALATION RT-Q6H 01/10/19 01/10/19 History Nebulized] Atorvastatin [Lipitor] 40 mg PO HS@2100 01/10/19 01/10/19 History Bisacodyl [Dulcolax] 10 mg RECTAL DAILY PRN 01/10/19 01/10/19 History Cholecalciferol (Vitamin D3) 2,000 unit PO DAILY@0800 01/10/19 01/10/19 History [Vitamin D3] Ferrous Sulfate [Feosol] 325 mg PO DAILY@0800 01/10/19 01/10/19 History Levofloxacin [Levaquin] 250 mg PO DIRECTED 01/10/19 01/10/19 History Losartan Potassium [Cozaar] 100 mg PO DAILY@0800 01/10/19 01/10/19 History Magnesium Hydroxide [Milk of 2,400 mg PO DAILY PRN 01/10/19 01/10/19 History Magnesia] Na Phos,M-B/Na Phos,Di-Ba [Fleet 133 ml RECTAL DAILY PRN 01/10/19 01/10/19 History Adult] Ranitidine HCl [Zantac] 150 mg PO BID@0800,1700 01/10/19 01/10/19 History amLODIPine [Norvasc] 10 mg PO DAILY@0800 01/10/19 01/10/19 History guaiFENesin [Mucinex] 600 mg PO Q12HR 01/10/19 01/10/19 History hydrALAZINE HCL [Apresoline] 100 mg PO BID@0800,1700 01/10/19 01/10/19 History Allergies Allergy/AdvReac Type Severity Reaction Status Date / Time No Known Allergies Allergy Verified 01/10/19 21:17 Physical Exam Vitals: Vital Signs Temp Pulse Pulse Resp BP BP Pulse Ox 01/11/19 09:10 72 01/11/19 08:55 76 01/11/19 07:00 97.3 F L 78 16 145/70 95 01/11/19 05:52 92 L 01/11/19 05:45 18 92 L 01/11/19 01:57 65 14 95 01/10/19 23:00 68 14 121/61 93 L 01/10/19 22:40 71 18 106/56 96 01/10/19 21:30 77 133/74 90 L 01/10/19 21:25 78 22 01/10/19 21:05 76 22 01/10/19 21:00 73 128/72 92 L 01/10/19 20:37 77 20 152/79 91 L Intake and Output 01/10/19 01/11/19 01/11/19 22:59 06:59 14:59 Other: Voiding Method Incontinent Incontinent # Voids 2 Weight 61.235 kg Results CBC & Chem 7: 01/10/19 20:30 01/10/19 20:30 Labs: Abnormal Lab Results - Last 24 Hours (Table) 01/10/19 01/10/19 Range/Units 20:30 20:30 WBC 15.1 H (3.8-10.6) k/uL Neutrophils # 13.3 H (1.3-7.7) k/uL Lymphocytes # 0.8 L (1.0-4.8) k/uL Sodium 136 L (137-145) mmol/L BUN 29 H (7-17) mg/dL Glucose 61 L (74-99) mg/dL AST 45 H (14-36) U/L Alkaline Phosphatase 168 H (38-126) U/L Total Protein 6.0 L (6.3-8.2) g/dL Albumin 3.1 L (3.5-5.0) g/dL Thrombosis Risk Factor Assmnt - Choose All That Apply Each Factor Represents 1 point: Medical pt on bed rest, Swollen legs (current) Each Risk Factor Represents 3 Points: Age 75 years or older Other congenital or acquired thrombophilia - If yes, enter type in comment: No Thrombosis Risk Factor Assessment Total Risk Factor Score: 5 Thrombosis Risk Factor Assessment Level: High Risk
[2019-01-11] MEDS ORDERED: FAMOTIDINE 20 MG TAB PO SCH (17:00)
[2019-01-11] MEDS ORDERED: ATORVASTATIN 40 MG TAB PO SCH (21:00)
[2019-01-11] MEDS: CEFEPIME 2 GM in SODIUM CHLORIDE 0.9% 100 ML IVPB SCH (21:32)
[2019-01-12 00:22] LABS: Allen Test Performed? Yes
[2019-01-12] MEDS ORDERED: FUROSEMIDE 10 MG/ML 4 ML VIAL IV ONE (00:30)
--- NOTE | 2019-01-12 00:30 | XR ---
EXAMINATION TYPE: XR chest 1V portable DATE OF EXAM: 01/12/2019 COMPARISON: Yesterday HISTORY: Respiratory distress TECHNIQUE: Single frontal view of the chest is obtained. FINDINGS: There is complete opacification left hemithorax. Heart is shifted slightly to the left shyla e. There is smaller right pleural effusion. IMPRESSION: Completely opacified left hemithorax shows progressive opacification compared to yesterd ay. There is a component of atelectasis. There is small right pleural effusion. No heart failure.
[2019-01-12 00:36] LABS: ABG Base Excess -0.2 mmol/L; ABG HCO3 25 mmol/L (21-25); ABG PCO2 44 mmHg (35-45); ABG PH 7.37 (7.35-7.45); ABG PO2 81 mmHg (83-108); ABG TCO2 27 mmol/L (19-24)
[2019-01-12] MEDS ORDERED: FUROSEMIDE 10 MG/ML 4 ML VIAL IV STA (01:07)
[2019-01-12] MEDS: hydrALAZINE HCL 50 MG TAB PO SCH ×2 (01:15→11:46)
[2019-01-12] MEDS: SODIUM CHLORIDE 0.9% 1,000 ML IV SCH (04:51)
[2019-01-12 07:15] LABS: HCT 36.5 % (34.0-46.0); HGB 11.9 gm/dL (11.4-16.0); MCH 31.3 pg (25.0-35.0); MCHC 32.5 g/dL (31.0-37.0); MCV 96.4 fL (80.0-100.0); Mean Platelet Volume 7.9; Platelet Count 336 k/uL (150-450); RBC 3.79 m/uL (3.80-5.40); RDW 14.4 % (11.5-15.5); WBC 15.6 k/uL (3.8-10.6)
[2019-01-12 07:28] LABS: Potassium 3.5 mmol/L (3.5-5.1)
[2019-01-12] MEDS ORDERED: DEXTROSE 10 % IN WATER 250 ML IV ONE (07:41)
[2019-01-12] MEDS ORDERED: CHOLECALCIFEROL 1,000 UNIT TAB PO SCH (08:00)
[2019-01-12] MEDS ORDERED: FERROUS SULFATE 325 MG TAB PO SCH (08:00)
[2019-01-12] MEDS ORDERED: DEXTROSE 5%-0.45% NACL 1,000 ML IV SCH (08:00)
[2019-01-12] MEDS ORDERED: CALCIUM CARB-VIT D 500MG-200UN 1 EACH TAB PO SCH (08:00)
[2019-01-12 08:01] LABS: Glucose,Whole Blood 43 mg/dL (75-99)
[2019-01-12 08:08] LABS: Glucose,Whole Blood 198 mg/dL (75-99)
[2019-01-12] MEDS: IPRATROPIUM-ALBUTEROL 3 ML NEB INHALATION SCH (08:23)
[2019-01-12 08:55] VITALS: BP 156/67; PULSE 93; RESP 16; TEMP 98
[2019-01-12] MEDS ORDERED: LORazepam 2 MG/ML INJ IV PRN (09:12)
[2019-01-12] MEDS ORDERED: SCOPOLAMINE 1.5MG/72HR PATCH TRANSDERM SCH (09:15)
[2019-01-12] MEDS ORDERED: MORPHINE SULFATE (100 MG/2 ML) 100 MG in SODIUM CHLORIDE 0.9% 100 ML IV SCH (10:00)
[2019-01-12] MEDS: LOSARTAN 50 MG TAB PO SCH (11:46)
[2019-01-12] MEDS: guaiFENesin 600 MG TABLET.ER PO SCH (11:46)
[2019-01-12] MEDS: amLODIPine 10 MG TAB PO SCH (11:46)
[2019-01-12] MEDS: CEFEPIME 2 GM in SODIUM CHLORIDE 0.9% 100 ML IVPB SCH (11:46)
--- NOTE | 2019-01-12 12:30 | CONS ---
CONSULTATION DATE OF CONSULTATION: January 12, 2019 REASON FOR CONSULTATION: Pneumonia. HISTORY OF PRESENT ILLNESS: This is an 88-year-old female who was brought in by EMS. The patient apparently developed some shortness of breath at the [facility] that she [facility] in. She also had chest congestion, coughing and some phlegm production. She was thought to have possible pneumonia. She apparently been having some problems now for about a week to 10 days. Maybe a bit longer than that. She sees Dr. Cummins there and apparently was treated with some antibiotics and breathing treatments. Unfortunately, her condition has worsened. She got admitted to the floor. It is a NO CODE patient. Last night an A team was called on this patient. I did speak to Kiersten, the ICU nurse. She was treated with some additional oxygen therapy, IV diuretics in the form of Lasix x2 as well as BiPAP therapy. Did seem to improve a little bit and stabilized out. More recently, the daughter who is her medical decision maker, decided to make her comfort measures only. The chest x-ray shows complete opacification of the left chest and a CT scan suggests the possibility of a left mainstem obstruction, i.e. malignancy. Anyway, the daughter feels very comfortable at this point because of her significant deterioration, that the patient should in fact be a comfort measures only patient. The patient is nonresponsive and no additional history could be obtained from her. CURRENT MEDICATIONS: Her current home medications or [facility] medications include aspirin, calcium carbonate/vitamin D3, Tylenol, albuterol updrafts, Lipitor, Dulcolax, vitamin D3, iron tablets, Levaquin losartan, milk of magnesia, Fleet enema, ranitidine, Norvasc, Mucinex, and Apresoline. ALLERGIES: Denied. MEDICAL HISTORY: Positive for hypertension, osteoporosis, arthritis, gait disturbance, and some other minor medical problems. All in all for somebody who is 88, she is relatively healthy. SURGICAL HISTORY: Includes most notably right hip surgery. SOCIAL HISTORY: Significant that she is a lifelong nonsmoker, nondrinker and does not use illicit drugs. FAMILY HISTORY: Positive for mother with myocardial infarction. She at an earlier age. REVIEW OF SYSTEMS: CONSTITUTIONAL: Decreased level of consciousness. NEUROLOGIC: Negative. HEENT negative. CARDIOVASCULAR negative. PULMONARY: Shortness of breath. Chest congestion, cough, phlegm production. GI negative. : Negative. RHEUMATOLOGIC: Negative. IMMUNOLOGIC: Negative. ENDOCRINOLOGIC: Negative. DERMATOLOGIC: Negative. PHYSICAL EXAMINATION: VITAL SIGNS: Current vital signs are reviewed. Temperature 98, heart rate 93, respiratory rate 16, blood pressure 156/67 mean 96 and BiPAP saturation is 92%. On 6 L she is about 91-92 percent as well. GENERAL: Currently is unresponsive. HEENT examination is grossly unremarkable. Nasal O2 noted. NECK: Supple. Full range of motion. No adenopathy. Neck veins are flat. CARDIOVASCULAR examination reveals regular rhythm and rate. Heart sounds are distant. Heart rate about 95 beats per minute. No distinct murmur noted. LUNGS: Reveal severely diminished breath sounds on the left. There is coarse bilateral rhonchi. No wheezes. ABDOMEN: Soft. Bowel sounds are noted. EXTREMITIES are intact. No edema. SKIN: Without rash. NEUROLOGIC: Examination is difficult to assess, she is very poorly responsive. LAB DATA: Reviewed. White count 15.6, hemoglobin 11.9, hematocrit 36.5, platelet count 336,1000. PT/INR PTT normal. Blood gases show pO2 of 81, pCO2 of 44, and pH 7.37. Sodium 140, potassium 3.5, chloride 104, CO2 24, anion gap is 12, BUN and creatinine were 30 and 1.37. The rest of the labs are reviewed. N-terminal proBNP 2010. Albumin 3.1. Troponin was negative. Chest x-ray done initially on the 1st shows pleural effusions with significant volume loss in the left hemithorax. There is a possibility of a mass at the left pulmonary hilum with obstruction of the left bronchus. A chest CT was also done. It also suggested atelectasis at the left lung with a mild left pleural effusion. There is also small right-sided pleural effusion and right basilar atelectasis. There is narrowing of the left mainstem bronchus, which could be consistent with underlying malignancy. Followup chest x-ray on the 3rd at 00:26 am in the morning shows completely opacified left hemithorax. Microbiology is negative thus far. Medications are reviewed. We have discontinued all unnecessary medications. She is just basically on comfort measures protocol at this time. ASSESSMENT: 1. Extensive pneumonia left lung, with possible left mainstem bronchial obstruction from tumor/mass. 2. Declining respiratory status for the last 10 days to 2 weeks. 3. History of hypertension. 4. History of arthritis. 5. History of osteoporosis. 6. History of gait dysfunction. 7. Vitamin D deficiency. 8. History of hypertension. 9. History of hyperlipidemia. PLAN: I was in contact with the nurse last night when she first started to deteriorate. At that point, she was a NO CODE. She was not to be intubated. We gave her diuretics, repeated the chest x-ray and placed her on BiPAP. She seemed to do a bit better initially. This morning, I had a chance to talk to the daughter who is making the medical decisions for Ms. Willett. She requests the patient to be a comfort measures only. No additional intervention should be done. We will stop all unnecessary medications and give her morphine sulfate, Ativan p.r.n., and a scopolamine patch. Additional recommendations and suggestions are forthcoming. Prognosis is obviously very poor. ANGELICA / QI: [id number] /
[2019-01-12] MEDS ORDERED: LEVOFLOXACIN 750MG-D5W PMX 750 MG in DEXTROSE/WATER 1 150ML.BAG IVPB SCH (22:00)
--- NOTE | 2019-01-12 23:04 | P.DS ---
Providers Date of admission: 01/10/19 22:23 Expected date of discharge: 01/12/19 Attending physician: Huy Huerta Consults: 01/11/19 15:26 Consult Physician Routine Consulting Provider: Denver Baltazar Consult Reason/Comments: Severe pneumonia Do you want consulting provider notified?: Yes [facility] Course: Chief Complaint: Worsening cough History of presenting complaint: This is a 88-year-old patient who is being followed by Dr. Cummins at [facility]. Chronic stable medical conditions include Alzheimer's dementia, hypertension, osteoarthritis, medical debility, uses a wheelchair, normal pressure hydrocephalus,. History is obtained by the daughter the bedside so was also patient's DURABLE POWER OF INSTRUCTIONAL TECHNOLOGY INSTRUCTOR. Patient had a baseline can just about recognize her daughter. Is on a pured diet. Does need some assistance. For about 10 days has been diagnosed with pneumonia was started on oral antibiotics. Not improving. Getting worse with worsening shortness of breath cough congested. Not able to expectorate. Brought into the ER. Found to have worsening pneumonia. Admitted. Was started on IV Levaquin and Zosyn. Patient rather tired and exhausted. Today-patient continued to decline overnight. Much more short of breath. Required BiPAP. Not feeling well. Physical examination: VITAL SIGNS: 98, 93, 20, 156/67, 92% on BiPAP GENERAL: Laying in bed, short of breath EYES: Pupils equal. Conjunctiva normal. HEENT: External appearance of nose and ears normal, oral cavity grossly normal. NECK: JVD unable to assess; masses not palpable. HEART: First and second heart sounds are normal; no edema. LUNGS:[ Respiratory rate increased, increased breath sound extremity crackles, audible crackles in the chest. ABDOMEN: Soft, nontender, liver spleen not palpable, no masses palpable. PSYCH: Lethargic but arousablel. INVESTIGATIONS, reviewed in the clinical context: White count 15.6 creatinine 1.37 Previous testing White count 15.1 hemoglobin 13.2 potassium 3.8 bun 29 creatinine 0.96 Troponin I less than 0.012 proBNP 2009 EKG tracing personally reviewed by me-right bundle-branch block Chest x-ray film personally reviewed by me-significant infiltrate on the left side, cannot rule out pleural effusion Assessment: -Severe pneumonia multilobar on the left side, strongly suspect aspiration pneumonia and associated atelectasis., Worsening -Advanced Alzheimer's dementia, with major cognitive impairment -Acute hypoxic respiratory failure from pneumonia, worsening -Headedness medical debility patient does use a wheelchair -Hypoalbuminemia likely from mild protein calorie malnutrition from decreased oral intake -Normal pressure hydrocephalus -Essential hypertension -Advanced primary osteoarthritis -Acute metabolic encephalopathy from pneumonia -DO NOT RESUSCITATE Disposition: Inpatient hospice/GIP for symptom control Advanced care planning: Patient continued to deteriorate overnight. Spoke to the patient's daughter and described that patient's is feeling. Doing poorly. Daughter wishes the patient bit comfortable. Which is very appropriate. Agree to take off the BiPAP to keep her comfortable. Patient will require morphine drip. Hospice is being consulted. Other family members accompanied. Questions were answered. 20 minutes was spent for advanced care planning. Patient Condition at Discharge: Serious Plan - Discharge Summary Discharge Rx Participant: Yes New Discharge Prescriptions: No Action Calcium Carbonate/Vitamin D3 [Calcium 500-Vit D3 600 Tablet] 1 tab PO DAILY@0800 Aspirin EC [Ecotrin Low Dose] 81 mg PO MOTH Na Phos,M-B/Na Phos,Di-Ba [Fleet Adult] 133 ml RECTAL DAILY PRN PRN Reason: Constipation Bisacodyl [Dulcolax] 10 mg RECTAL DAILY PRN PRN Reason: Constipation Albuterol Nebulized [Ventolin Nebulized] 2.5 mg INHALATION RT-Q6H Acetaminophen [Tylenol Arthritis] 650 mg PO Q4H PRN PRN Reason: Pain Ranitidine HCl [Zantac] 150 mg PO BID@0800,1700 hydrALAZINE HCL [Apresoline] 100 mg PO BID@0800,1700 guaiFENesin [Mucinex] 600 mg PO Q12HR Cholecalciferol (Vitamin D3) [Vitamin D3] 2,000 unit PO DAILY@0800 Levofloxacin [Levaquin] 250 mg PO DIRECTED Losartan Potassium [Cozaar] 100 mg PO DAILY@0800 Ferrous Sulfate [Feosol] 325 mg PO DAILY@0800 amLODIPine [Norvasc] 10 mg PO DAILY@0800 Magnesium Hydroxide [Milk of Magnesia] 2,400 mg PO DAILY PRN PRN Reason: Constipation Atorvastatin [Lipitor] 40 mg PO HS@2100 Discharge Medication List Aspirin EC [Ecotrin Low Dose] 81 mg PO MOTH 01/16/16 [History] Calcium Carbonate/Vitamin D3 [Calcium 500-Vit D3 600 Tablet] 1 tab PO DAILY@0800 01/16/16 [History] Acetaminophen [Tylenol Arthritis] 650 mg PO Q4H PRN 01/10/19 [History] Albuterol Nebulized [Ventolin Nebulized] 2.5 mg INHALATION RT-Q6H 01/10/19 [History] Atorvastatin [Lipitor] 40 mg PO HS@2100 01/10/19 [History] Bisacodyl [Dulcolax] 10 mg RECTAL DAILY PRN 01/10/19 [History] Cholecalciferol (Vitamin D3) [Vitamin D3] 2,000 unit PO DAILY@0800 01/10/19 [History] Ferrous Sulfate [Feosol] 325 mg PO DAILY@0800 01/10/19 [History] Levofloxacin [Levaquin] 250 mg PO DIRECTED 01/10/19 [History] Losartan Potassium [Cozaar] 100 mg PO DAILY@0800 01/10/19 [History] Magnesium Hydroxide [Milk of Magnesia] 2,400 mg PO DAILY PRN 01/10/19 [History] Na Phos,M-B/Na Phos,Di-Ba [Fleet Adult] 133 ml RECTAL DAILY PRN 01/10/19 [History] Ranitidine HCl [Zantac] 150 mg PO BID@0800,1700 01/10/19 [History] amLODIPine [Norvasc] 10 mg PO DAILY@0800 01/10/19 [History] guaiFENesin [Mucinex] 600 mg PO Q12HR 01/10/19 [History] hydrALAZINE HCL [Apresoline] 100 mg PO BID@0800,1700 01/10/19 [History] Follow up Appointment(s)/Referral(s): Dillon Cummins DO [Primary Care Provider] - 1-2 days
[2019-01-13] MEDS ORDERED: ASPIRIN 81 MG PO SCH (09:00)
== END 2019-01-12 13:23 | disposition hospice, inpatient (51) | DRG 177 ==
LOC: EC 20:09 → 4SSUR 22:23
PROVIDERS: ADMIT Hospitalist; ATTEND Hospitalist
PROC: 5A09457 Assistance with Respiratory Ventilation, 24-96 Consecutive Hours, Continuous Positive Airway Pressure (ICD-10-PCS; principal; 2019-01-10)
DX: J69.0 Pneumonitis due to inhalation of food and vomit (principal); G93.41 Metabolic encephalopathy; J96.01 Acute respiratory failure with hypoxia; E44.1 Mild protein-calorie malnutrition; G91.2 (Idiopathic) normal pressure hydrocephalus; E55.9 Vitamin D deficiency, unspecified; E78.5 Hyperlipidemia, unspecified; F02.80 Dementia in other diseases classified elsewhere, unspecified severity, without behavioral disturbance, psychotic disturbance, mood disturbance, and anxiety; G30.9 Alzheimer's disease, unspecified; I10 Essential (primary) hypertension; M19.91 Primary osteoarthritis, unspecified site; M81.0 Age-related osteoporosis without current pathological fracture; Z51.5 Encounter for palliative care; Z66 Do not resuscitate; Z79.899 Other long term (current) drug therapy; Z82.49 Family history of ischemic heart disease and other diseases of the circulatory system; Z87.01 Personal history of pneumonia (recurrent); Z79.82 Long term (current) use of aspirin
CPT/HCPCS: 36415; 36600; 71045; 71046; 71260; 80048; 80053; 82550; 82805; 83735; 83880; 84145; 84484; 85025; 85027; 85610; 85730; 87040; 93005; 94640; 94660; 94760; 96360; 99291

== ENCOUNTER 2019-01-12 11:48 | Inpatient (IN) | payer MEDICAID ==
[2019-01-12] MEDS ORDERED: LORazepam 2 MG/ML INJ IV PRN (16:03)
[2019-01-12] MEDS ORDERED: BISACODYL 10 MG SUPP RECTAL PRN (16:05)
[2019-01-12] MEDS ORDERED: ACETAMINOPHEN SUPPOSITORY 650 MG SUPP RECTAL PRN (16:06)
[2019-01-12] MEDS ORDERED: ONDANSETRON 4 MG TAB PO PRN (16:07)
[2019-01-12] MEDS ORDERED: GLYCOPYRROLATE 0.2 MG/ML 2 ML VIAL IVP PRN (16:09)
[2019-01-12] MEDS ORDERED: MORPHINE SULFATE (100 MG/2 ML) 100 MG in SODIUM CHLORIDE 0.9% 100 ML IV SCH (17:00)
[2019-01-12] MEDS: SCOPOLAMINE 1.5MG/72HR PATCH TRANSDERM SCH (17:01)
[2019-01-12] MEDS: ATROPINE OPHTH SOLN 1% 5ML BTL SUBLINGUAL PRN (17:01)
[2019-01-13] MEDS: ATROPINE OPHTH SOLN 1% 5ML BTL SUBLINGUAL PRN (01:26)
[2019-01-13] MEDS: SCOPOLAMINE 1.5MG/72HR PATCH TRANSDERM SCH (02:13)
[2019-01-13 03:34] VITALS: PULSE 86; RESP 26
--- NOTE | 2019-01-13 23:38 | DS ---
DISCHARGE SUMMARY DATE OF ADMISSION: 01/12/2019. DATE PATIENT : 01/13/2019. CAUSE OF : 1. Pneumonia. 2. Alzheimer's dementia. HOSPITAL COURSE: This patient was admitted with pneumonia to the hospital and progressively became much worse. Comfort measures was started after discussing with the daughter. Given comfort care medications including morphine, oxygen. The patient comfortably. A copy of dictation to Dr. Cummins. ANGELICA / QI: [id number] /
== END 2019-01-13 07:30 | disposition expired | DRG 951 ==
LOC: 4SSUR 13:30
PROVIDERS: ADMIT Hospitalist; ATTEND Hospitalist
DX: Z51.5 Encounter for palliative care (principal); J18.9 Pneumonia, unspecified organism; G91.2 (Idiopathic) normal pressure hydrocephalus; G30.9 Alzheimer's disease, unspecified; F02.80 Dementia in other diseases classified elsewhere, unspecified severity, without behavioral disturbance, psychotic disturbance, mood disturbance, and anxiety; I10 Essential (primary) hypertension; M19.90 Unspecified osteoarthritis, unspecified site; R53.81 Other malaise; Z79.2 Long term (current) use of antibiotics; Z79.82 Long term (current) use of aspirin; Z79.899 Other long term (current) drug therapy; Z66 Do not resuscitate